=== PATIENT | male | born 1975 | race Caucasian/White ===

== ENCOUNTER 2024-08-24 17:24 | Emergency (ER) | payer MEDICAID, OTHER ==
[~2024-08-24] VITALS: Ht 167.6 cm; Wt 90.8 kg
[2024-08-24] MEDS: SODIUM CHLORIDE 0.9% 1,900 ML IV ONE ×2 (17:45→18:48)
--- NOTE | 2024-08-24 17:49 | ED.PDOC ---
Eye-HPI HPI Comments 49 y.o male presents to the ED for a chief complaint of right lower tooth pain associated with throat swelling and SOB that started this morning. Patient reports going to the dentist for tooth pain, was prescribed two medications in which he started the first dose today and states symptoms have not improved but worsened, with the sensation that his throat is closing. Patient has difficult time speaking due to oral swelling and reports pain upon swallowing. No drooling or bleeding noted. Chief Complaint: Shortness of Breath Time Seen by MD: 17:40 Primary Care Provider: ? Reviewed Notes: Nurses Notes, Medications, Allergies Allergies: Coded Allergies: NO KNOWN ALLERGIES (Unverified , 08/24/24) Information Source: Patient Mode of Arrival: Ambulatory Timing: Hours Duration: Since onset Quality: Pain Mouth Location: Right, Lower, Tooth/Teeth Mouth: Right, Tender, Swelling Associated signs and symptoms: Tooth Pain Past Medical History PAST MEDICAL HISTORY: Denies Surgical History: Denies all surgeries Family History Family History: Reviewed,noncontributory to illness Social History Smoker: Non-Smoker Alcohol: Denies ETOH Use Drugs: Denies Drug Use Lives In: Home Constitutional: denies: chills, diaphoresis, fatigue, fever, malaise, sweats, weakness, others EENTM: reports: throat swelling, others (right lower tooth pain. Throat swelling/nexk swelling ); denies: blurred vision, double vision, ear bleeding, ear discharge, ear drainage, ear pain, ear ringing, eye pain, eye redness, hearing loss, mouth pain, mouth swelling, nasal discharge, nose bleeding, nose congestion, nose pain, photophobia, tearing, throat pain, voice changes Respiratory: denies: cough, hemoptysis, orthopnea, SOB at rest, shortness of breath, SOB with excertion, stridor, wheezing, others Cardiovascular: denies: chest pain, dizzy spells, diaphoresis, Dyspnea on exertion, edema, irregular heart beat, left arm pain, lightheadedness, palpitations, PND, syncope, others Gastrointestinal: denies: abdomen distended, abdominal pain, blood streaked bowels, constipated, diarrhea, dysphagia, difficulty swallowing, hematemesis, melena, nausea, poor appetite, poor fluid intake, rectal bleeding, rectal pain, vomiting, others Genitourinary: denies: burning, dysuria, flank pain, frequency, hematuria, incontinence, penile discharge, penile sore, pain, testicle pain, testicle swelling, urgency, others Neurological: denies: dizziness, fainting, headache, left sided numbness, left sided weakness, numbness, paresthesia, pre-existing deficit, right sided numbness, right sided weakness, seizure, speech problems, tingling, tremors, weakness, others Musculoskeletal: denies: back pain, gout, joint pain, joint swelling, muscle pain, muscle stiffness, neck pain, others Integumetry: denies: bruises, change in color, change in hair/nails, dryness, laceration, lesions, lumps, rash, wounds, others Allergic/Immunocompromised: denies: Difficulty Healing, Frequent Infections, Hives, Itching, others Hematologic/Lymphatic: denies: anemia, blood clots, easy bleeding, easy bruising, swollen glands, others Endocrine: denies: excessive hunger, excessive sweating, excessive thirst, excessive urination, flushing, intolerance to cold, intolerance to heat, u nexplained weight gain, unexplained weight loss, others Psychiatric: denies: anxiety, bipolar disorder, depression, hopeless, panic disorder, schizophrenia, sleepless, suicidal, others All Other Systems: Reviewed and Negative Physical Exam General Appearance: No Apparent Distress, Obese HEENT: Other (Pupils symmetric. Extraocular movements intact. Elevation of the floor of the mouth with soft tissue swelling and tenderness of the right mandibular area extending to the right neck. Unable to visualize posterior pharynx.) Neck: Supple, Other (No posterior midline tenderness. Right lateral neck soft tissue tenderness and swelling.) Respiratory: Lungs Clear, No Accessory Muscle Use, No Respiratory Distress, Normal Breath Sounds Cardiovascular: No JVD, Regular Rate/Rhythm Breast Exam: Deferred Gastrointestinal: Non Tender, Soft Genitalia: Deferred Pelvic: Deferred Rectal: Deferred Extremities: Normal inspection, Normal range of motion, Non-tender, No pedal edema Neurologic: Alert (Oriented x4), Normal Affect, Normal Mood, Other (Ambulatory) Cerebellar Function: NOT DONE Reflexes: NOT DONE Skin: Dry, Normal Color, Warm Lymphatic: NOT DONE Was a procedure done? Was a procedure done?: No EENT DIFF Eye: N/A Sore Throat: Serafin's Angina, Peritonsillar Abscess, Peritonsillar Cellulitis, Other (Pulpitis, impacted wisdom tooth, ) Other Differential Diagnosis Dental abscess, lymphadenitis, retropharyngeal abscess, sepsis, among others X-Ray, Labs, Meds, VS Vital Signs Date Time Temp Pulse Resp B/P (MAP) Pulse Ox O2 Delivery O2 Flow Rate FiO2 08/24/24 21:57 100.0 08/24/24 21:43 100.0 08/24/24 21:00 109 37 141/90 (107) 95 08/24/24 20:43 100.2 08/24/24 19:30 100.2 112 28 135/93 (107) 96 100.2 08/24/24 19:30 Room Air* 0 08/24/24 19:20 113 22 135/93 08/24/24 18:38 116 30 127/93 08/24/24 18:11 Room Air* 0 08/24/24 18:11 99.2 119 26 126/93 (104) 97 99.2 08/24/24 17:45 18 98 Room Air* 0 08/24/24 17:35 98.8 122 18 122/89 (100) 98 98.8 Lab Test 08/24/24 21:03 08/24/24 18:01 Range/Units POC Glucose 171 H 70-106 mg/dl White Blood Count 23.6 H 4.4-10.8 10^3/uL Red Blood Count 5.79 4.5-5.90 10^6/uL Hemoglobin 16.9 13.5-17.5 g/dL Hematocrit 49.3 41.0-53.0 % Mean Corpuscular Volume 85.1 80.0-100.0 fL Mean Corpuscular Hemoglobin 29.1 28.0-32.0 pg Mean Corpuscular Hemoglobin Concent 34.2 32.0-36.0 g/dL Red Cell Distribution Width 13.7 11.8-14.3 % Platelet Count 235 140-450 10^3/uL Mean Platelet Volume 9.2 6.9-10.8 fL Neutrophils (%) (Auto) 92.7 H 37.0-80.0 % Lymphocytes (%) (Auto) 2.8 L 10.0-50.0 % Monocytes (%) (Auto) 4.4 0.0-12.0 % Eosinophils (%) (Auto) 0.0 0.0-7.0 % Basophils (%) (Auto) 0.1 0.0-2.0 % Neutrophils # (Auto) 21.8 H 1.6-8.6 10 ^3/uL Lymphocytes # (Auto) 0.7 0.4-5.4 10 ^3/uL Monocytes # (Auto) 1.0 0-1.3 10 ^3/uL Eosinophils # (Auto) 0 0-0.8 10 ^3/uL Basophils # (Auto) 0 0-0.2 10 ^3/uL Nucleated Red Blood Cells 0.0 % Sodium Level 144 136-145 mmol/L Potassium Level 3.7 3.5-5.1 mmol/L Chloride Level 109 H 98-107 mmol/L Carbon Dioxide Level 22 20-31 mmol/L Anion Gap 13 5-15 Blood Urea Nitrogen 14 9-23 mg/dL Creatinine 0.96 0.700-1.30 mg/dL Glomerular Filtration Rate Calc 98 >90 mL/min BUN/Creatinine Ratio 14.6 10.0-20.0 Serum Glucose 159 H 74-106 mg/dL Lactic Acid Level 2.0 0.4-2.0 mmol/L Calcium Level 10.2 8.7-10.4 mg/dL Current Medications Medications (Trade) Dose Ordered Sig/Gisella Route Start Time Stop Time Status Last Admin Sodium Chloride 1,900 ml @ 1,900 mls/hr ONCE ONCE IV 08/24/24 17:45 08/24/24 18:44 DC 08/24/24 17:45 Dexamethasone Sodium Phosphate (Decadron Injection) 10 mg ONCE ONCE IV 08/24/24 17:45 08/24/24 17:48 DC 08/24/24 18:37 Clindamycin Phosphate 50 ml @ 50 mls/hr ONCE ONCE IV 08/24/24 17:45 08/24/24 18:44 DC 08/24/24 18:48 Morphine Sulfate 4 mg ONCE ONCE IV 08/24/24 17:45 08/24/24 17:48 DC 08/24/24 18:38 Ondansetron HCl (Zofran) 4 mg ONCE ONCE IV 08/24/24 17:45 08/24/24 17:48 DC 08/24/24 18:37 Ceftriaxone Sodium 50 ml @ 100 mls/hr ONCE ONCE IV 08/24/24 19:30 08/24/24 19:59 DC 08/24/24 19:48 Acetaminophen (Tylenol Solution Oral) 975 mg ONCE ONCE PO 08/24/24 20:15 08/24/24 20:16 DC 08/24/24 20:43 Ibuprofen (MOTRIN 100MG/5 mL ORAL SUSP) 800 mg ONCE ONCE PO 08/24/24 21:45 08/24/24 21:46 DC 08/24/24 21:57 PROCEDURE(s): FAC2C - MAXILLOFACIAL WITHOUT REASON: R mandib pain/swelling ORDER NUMBER(s): [id number], ACCESSION NUMBER(s): [id number] Procedure: CT MAXILLOFACIAL WITHOUT Study Date and Requested Time: 08/24/2024 06:08 PM History: R mandib pain/swelling Comparison: None Dose: CTDI: 66.97 mGy DLP: 1985.04 mGycm Technique: Multiplanar images obtained through the face without intravenous contrast. Findings: Redemonstration of right last mandibular tooth dental caries with dehiscence of the medial wall associated edema and foci of air extending to the right submandibular region and Iuapm-cqcmapf-uocr-left neck, right oropharynx and right supraglottic soft tissues with retropharyngeal edema. Limited evaluation for abscess given noncontrast imaging. There is associated mild right-sided narrowing of the airway. Tonsilliths are noted within the left palatine tonsil. Subcentimeter cervical lymph nodes noted. The orbits and globes unremarkable. No evidence of acute traumatic fractures. Chronic deformity of the left lamina papyracea. Minimal mucoperiosteal thickening of the ethmoid air cells. Otherwise, the visualized paranasal sinuses and mastoids are clear. Impression: Redemonstration of right last mandibular tooth dental caries /infected dentigerous cyst with dehiscence of the medial wall and associated Foci of air and significant edema extending to the right submandibular region, right-grea dgo-ojck-moyh anterior neck, right oropharynx and supraglottic soft tissues and retropharyngeal region. Limited evaluation for abscess given noncontrast imaging. Mild right-sided narrowing of the airway. Critical Result: Dental caries /infected dentigerous cyst with associated extensive cellulitis Findings discussed with PORFIRIO GRIER at 08/24/2024 08:39 PM, and acknowledged receipt and understanding of the findings. .. EDURE(s): NKICT - NECK WITHOUT CONTRAST REASON: R neck swelling ORDER NUMBER(s): [id number], ACCESSION NUMBER(s): [id number] _ Procedure: CT NECK WITHOUT CONTRAST Study Date and Requested Time: 08/24/2024 06:08 PM History: R neck swelling Comparison: None Dose: CTDI: 22.99 mGy DLP: 1985.04 mGycm Technique: Multiplanar images obtained through the neck contrast Findings: There is partially unerupted right last mandibular molar tooth with significant periapical lucency with Foci of air extending inferior adjacent molar teeth with partial involvement of the posterior roots. The periapical lucency area appears to involve the adjacent mandibular canal with wall dehiscence medially and associated adjacent medial Foci of air extending to the inferior , medial and lateral to the mandibular ramus. There is associated Significant right mandibular and right neck soft tissue edema with edema of the right oropharynx and right supraglottic region causing mild narrowing of the airway. There is extension of the soft tissue edema to the left of the neck region There is associated retropharyngeal edema. No large drainable fluid collection is noted. Subcentimeter cervical lymph nodes noted. The edema extends inferior to the right parotid gland and surrounds the right submandibular gland. Otherwise, the parotid and submandibular glands unremarkable. The visualized cervical spine is unremarkable. Thyroid gland is unremarkable. The lung apices are clear. Impression: There is partially unerupted right last mandibular tooth with significant periapical lucency , Foci of air within the periapical lucency and dehiscence of the adjacent medial wall which most likely represent source of infection causing foci of air adjacent to The right mandibular ramus and right submandibular region with significant soft tissue edema of the right mandibular / submandibular region , Zabgp-izdtjku-cxxn-left Anterior neck , edema of the right oropharynx and supraglottic region and retropharyngeal edema. No large Drainable soft tissue fluid collection is noted within the limitations of noncontrast study. Critical Result: Dental caries with associated extensive cellulitis Findings discussed with PORFIRIO GRIER at 08/24/2024 08:34 PM, and acknowledged receipt and understanding of the findings. .. X-Ray, Labs, Meds, VS Comment 49-year-old male with no significant past medical history complaining of right posterior tooth, throat and neck pain and swelling Vitals remarkable for heart rate 122 Exam remarkable for elevation of the floor of the mouth with right mandibular and right neck soft tissue swelling, tenderness Rhythm strip independently interpreted by me: Sinus tach, rate 122, no ectopy. CT maxillofacial Impression: Redemonstration of right last mandibular tooth dental caries /infected dentigerous cyst with dehiscence of the medial wall and associated Foci of air and significant edema extending to the right submandibular region, mzseu-pulvjia-dljk-left anterior neck, right oropharynx and supraglottic soft tissues and retropharyngeal region. Limited evaluation for abscess given noncontrast imaging. Mild right-sided narrowing of the airway. Critical Result: Dental caries /infected dentigerous cyst with associated extensive cellulitis CT neck Impression: There is partially unerupted right last mandibular tooth with significant periapical lucency , Foci of air within the periapical lucency and dehiscence of the adjacent medial wall which most likely represent source of infection causing foci of air adjacent to The right mandibular ramus and right submandibular arash on with significant soft tissue edema of the right mandibular / submandibular region , Hipgo-xxnagen-ytqn-left Anterior neck , edema of the right oropharynx and supraglottic region and retropharyngeal edema. No large Drainable soft tissue fluid collection is noted within the limitations of noncontrast study. Critical Result: Dental caries with associated extensive cellulitis CBC remarkable for WBC 23.6 and left shift, basic metabolic panel unremarkable, lactic acid level 2 Patient treated with the following in the ED: 30 cc/kilogram IV normal saline bolus, Rocephin 1 g IV, clindamycin 900 mg IV, morphine 4 mg IV, Zofran 4 mg IV, Decadron 10 mg IV, Tylenol 975 mg p.o., motrin 800mg po On re-evaluation, patient states pain has somewhat improved. Vitals were stable. Oxygen saturation is 96% on room air, and patient is not in respiratory distress. Plan is to transfer the patient for higher level of care, ENT and/or OMFS. Discussed with Dr. Philip at [facility], who agreed to accept the patient. Time of 1ST Reevaluation: 17:49 Reevaluation 1ST: Unchanged Patient Education/Counseling: Diagnosis, Treatment, Prognosis Family Education/Counseling: No Family Present Sepsis Sepsis Reasesment Focused Exam Sepsis focused exam: focus exam completed, time: (1900) Orders: Laboratory Tests 08/24/24 18:01: Lactic Acid Level 2.0 Sepsis Date: Aug 24, 2024 Time recognized/suspected: 18:30 Recent Procedure: No On Antibiotic Therapy: Yes Respiratory Rate >20: Yes Heart Rate >90: Yes Temp<36 C (96.8 F) or >38.3 C: No SBP <90 or MAP <65 mmHG: No New Acute Mental Status Change: No Is the patient on CPAP, BIPAP,: No IV fluid given: Yes Departure 1 Departure Time of Disposition: 20:45 Impression: Primary Impression: Ludwigs angina Additional Impression: Sepsis Qualified Codes: A41.9 - Sepsis, unspecified organism Disposition: 02 SHORT TERM HOSPITAL Admit to: Tele Condition: Guarded Critical Care Note Critical Care Time?: Yes (45 min-critical care time only) Critical care comment: Critical care time including multiple bedside re-evaluations, review of lab and imaging studies, and discussion of the case with the accepting provider. Patie nt is high risk for respiratory and/or hemodynamic decompensation. Stability Stability form required: No I personally scribed for PORFIRIO GRIER MD ([facility] on 08/24/24 at 17:49. Electronically submitted by Ana Luisa Harden ([facility]). PORFIRIO GRIER MD Aug 24, 2024 17:49
[2024-08-24 18:20] LABS: Basophils # (auto) 0 10 ^3/uL (0-0.2); Basophils % (auto) 0.1 % (0.0-2.0); Eosinophils # (auto) 0 10 ^3/uL (0-0.8); Hematocrit 49.3 % (41.0-53.0); Hemoglobin 16.9 g/dL (13.5-17.5); Lymphocytes # (auto) 0.7 10 ^3/uL (0.4-5.4); Lymphocytes % (auto) 2.8 % (10.0-50.0); Mean Corpuscular Hemoglobin 29.1 pg (28.0-32.0); Mean Corpuscular Hgb Conc. 34.2 g/dL (32.0-36.0); Mean Corpuscular Volume 85.1 fL (80.0-100.0); Monocytes % (auto) 4.4 % (0.0-12.0); Neutrophils # (auto) 21.8 10 ^3/uL (1.6-8.6); Neutrophils % (auto) 92.7 % (37.0-80.0); Platelet Count (auto) 235 10^3/uL (140-450); Red Blood Cells 5.79 10^6/uL (4.5-5.90); Red Cell Distribution Width 13.7 % (11.8-14.3); White Blood Cell 23.6 10^3/uL (4.4-10.8)
[2024-08-24 18:27] LABS: Potassium 3.7 mmol/L (3.5-5.1); Sodium 144 mmol/L (136-145)
[2024-08-24 18:28] LABS: Anion Gap 13 (5-15); Carbon Dioxide 22 mmol/L (20-31)
[2024-08-24 18:29] LABS: Calcium 10.2 mg/dL (8.7-10.4)
[2024-08-24 18:34] LABS: BUN/Creatinine Ratio 14.6 (10.0-20.0); Blood Urea Nitrogen 14 mg/dL (9-23)
[2024-08-24 18:37] LABS: Chloride 109 mmol/L (98-107); Glucose 159 mg/dL (74-106)
[2024-08-24] MEDS: DexAMETHasone SOD PHOS 10MG/1ML VIAL INJ IV ONE (18:37)
[2024-08-24] MEDS: ONDANSETRON HCL 4 MG/2 ML VIAL IV ONE (18:37)
[2024-08-24] MEDS: MORPHINE SULFATE 4 MG/ML SYR/VIAL IV ONE (18:38)
[2024-08-24] MEDS: CLINDAMYCIN 900MG IV 50 ML IV ONE (18:48)
[2024-08-24] MEDS: cefTRIAXone 1GM/50ML D5W 50 ML IV ONE (19:48)
[2024-08-24] MEDS ORDERED: ACETAMINOPHEN 650 mg PER 20.3 mL UD PO ONE (20:00)
--- NOTE | 2024-08-24 20:37 | DVH ---
_ Procedure: CT NECK WITHOUT CONTRAST Study Date and Requested Time: 2024 06:08 PM History: R neck swelling Comparison: None Dose: CTDI: 22.99 mGy DLP: 1985.04 mGycm Technique: Multiplanar images obtained through the neck contrast Findings: There is partially unerupted right last mandibular molar tooth with significant periapical lucency wi th Foci of air extending inferior adjacent molar teeth with partial involvement of the posterior roula ts. The periapical lucency area appears to involve the adjacent mandibular canal with wall dehiscence medially and associated adjacent medial Foci of air extending to the inferior , medial and lateral t o the mandibular ramus. There is associated Significant right mandibular and right neck soft tissue edema with edema of the r ight oropharynx and right supraglottic region causing mild narrowing of the airway. There is extensio n of the soft tissue edema to the left of the neck region There is associated retropharyngeal edema. No large drainable fluid collection is noted. Subcentimeter cervical lymph nodes noted. The edema extends inferior to the right parotid gland and surrounds the right submandibular gland. O therwise, the parotid and submandibular glands unremarkable. The visualized cervical spine is unremarkable. Thyroid gland is unremarkable. The lung apices are odalis ar. Impression: There is partially unerupted right last mandibular tooth with significant periapical lucency , Foci o f air within the periapical lucency and dehiscence of the adjacent medial wall which most likely repr esent source of infection causing foci of air adjacent to The right mandibular ramus and right subman dibular region with significant soft tissue edema of the right mandibular / submandibular region , Ri yzc-djtiyks-eduh-left Anterior neck , edema of the right oropharynx and supraglottic region and retro pharyngeal edema. No large Drainable soft tissue fluid collection is noted within the limitations of noncontrast study. Critical Result: Dental caries with associated extensive cellulitis Findings discussed with PORFIRIO GRIER at 08/24/2024 08:34 PM, and acknowledged receipt and understanding of the findings. ..
[2024-08-24] MEDS: ACETAMINOPHEN 650 mg PER 20.3 mL UD PO ONE (20:43)
--- NOTE | 2024-08-24 20:44 | DVH ---
Procedure: CT MAXILLOFACIAL WITHOUT Study Date and Requested Time: 2024 06:08 PM History: R mandib pain/swelling Comparison: None Dose: CTDI: 66.97 mGy DLP: 1985.04 mGycm Technique: Multiplanar images obtained through the face without intravenous contrast. Findings: Redemonstration of right last mandibular tooth dental caries with dehiscence of the medial wall assoc iated edema and foci of air extending to the right submandibular region and Uyzcv-yjeptgu-bdcx-left n genia, right oropharynx and right supraglottic soft tissues with retropharyngeal edema. Limited evalua tion for abscess given noncontrast imaging. There is associated mild right-sided narrowing of the air way. Tonsilliths are noted within the left palatine tonsil. Subcentimeter cervical lymph nodes noted. The orbits and globes unremarkable. No evidence of acute traumatic fractures. Chronic deformity of the left lamina papyracea. Minimal muc operiosteal thickening of the ethmoid air cells. Otherwise, the visualized paranasal sinuses and mas toids are clear. Impression: Redemonstration of right last mandibular tooth dental caries /infected dentigerous cyst with dehiscen ce of the medial wall and associated Foci of air and significant edema extending to the right subman dibular region, byqli-yyklbtq-rxng-left anterior neck, right oropharynx and supraglottic soft tissues and retropharyngeal region. Limited evaluation for abscess given noncontrast imaging. Mild right-sided narrowing of the airway. Critical Result: Dental caries /infected dentigerous cyst with associated extensive cellulitis Findings discussed with PORFIRIO GRIER at 08/24/2024 08:39 PM, and acknowledged receipt and understanding of the findings. ..
[2024-08-24] MEDS: IBUPROFEN 100MG/5ML ORAL SUSP 100 MG/5 ML UD PO ONE (21:57)
[2024-08-24 22:10] VITALS: BP 108/78; PULSE 105; RESP 27; TEMP 100; O2SAT 96
== END 2024-08-24 22:32 | disposition short-term general hospital (02) ==
LOC: ER 17:24
DX: A41.9 Sepsis, unspecified organism (principal); K12.2 Cellulitis and abscess of mouth; R06.02 Shortness of breath
CPT/HCPCS: 36415; 70486; 70490; 80048; 82947; 83605; 85025; 87040; 96361; 96365; 96367; 96375; 99291; J0696; J1100; J2270; J2405; J3490; J7030; J7040; 82962

== ENCOUNTER 2025-02-09 10:18 | Inpatient (IN) | payer SELFPAY ==
[~2025-02-09] VITALS: Ht 170.2 cm; Wt 96.4 kg
--- NOTE | 2025-02-09 10:48 | ED.PDOC ---
GI ASSESSMENT HPI Comments 49 y/o M, presents to the ED for CC of abdominal pain. Patient states, he has been experiencing worsening abdominal pain onset, [id number] ago. Patient relays, further symptoms of "dark" colored urine. Patient endorses, drinking ETOH denies tobacco or illicit drug usage. No other symptoms or modifying factors are present at this time. Chief Complaint: Abdominal Pain Time Seen by MD: 10:45 Primary Care Provider: ? Reviewed Notes: Nurses Notes, Medications, Allergies Allergies: Coded Allergies: NO KNOWN ALLERGIES (Unverified , 08/24/24) Information Source: Patient Mode of Arrival: Ambulatory Timing: Weeks Duration: Since onset Prehospital treatment: None Vomitus: Watery Stool: Normal Severity: Moderate Recent: None Recent Hx of: None Pain Location: Diffuse Modifying Factors: Nothing Associated sign and symptoms: Nausea, Abdominal Pain Past Medical History PAST MEDICAL HISTORY: Denies Surgical History: Denies all surgeries Family History Family History: Reviewed,noncontributory to illness Social History Smoker: Non-Smoker Alcohol: Denies ETOH Use Drugs: Denies Drug Use Lives In: Home Constitutional: denies: chills, diaphoresis, fatigue, fever, malaise, sweats, weakness, others EENTM: denies: blurred vision, double vision, ear bleeding, ear discharge, ear drainage, ear pain, ear ringing, eye pain, eye redness, hearing loss, mouth pain, mouth swelling, nasal discharge, nose bleeding, nose congestion, nose pain, photophobia, tearing, throat pain, throat swelling, voice changes, others Respiratory: denies: cough, hemoptysis, orthopnea, SOB at rest, shortness of breath, SOB with excertion, stridor, wheezing, others Cardiovascular: denies: chest pain, dizzy spells, diaphoresis, Dyspnea on exer tion, edema, irregular heart beat, left arm pain, lightheadedness, palpitations, PND, syncope, others Gastrointestinal: reports: abdominal pain, nausea; denies: abdomen distended, blood streaked bowels, constipated, diarrhea, dysphagia, difficulty swallowing, hematemesis, melena, poor appetite, poor fluid intake, rectal bleeding, rectal pain, vomiting, others Genitourinary: denies: burning, dysuria, flank pain, frequency, hematuria, incontinence, penile discharge, penile sore, pain, testicle pain, testicle swelling, urgency, others Neurological: denies: dizziness, fainting, headache, left sided numbness, left sided weakness, numbness, paresthesia, pre-existing deficit, right sided numbness, right sided weakness, seizure, speech problems, tingling, tremors, weakness, others Musculoskeletal: denies: back pain, gout, joint pain, joint swelling, muscle pain, muscle stiffness, neck pain, others Integumetry: denies: bruises, change in color, change in hair/nails, dryness, laceration, lesions, lumps, rash, wounds, others Allergic/Immunocompromised: denies: Difficulty Healing, Frequent Infections, Hives, Itching, others Hematologic/Lymphatic: denies: anemia, blood clots, easy bleeding, easy bruising, swollen glands, others Endocrine: denies: excessive hunger, excessive sweating, excessive thirst, excessive urination, flushing, intolerance to cold, intolerance to heat, unexplained weight gain, unexplained weight loss, others Psychiatric: denies: anxiety, bipolar disorder, depression, hopeless, panic disorder, schizophrenia, sleepless, suicidal, others All Other Systems: Reviewed and Negative Physical Exam General Appearance: Moderate Distress HEENT: Scleral Icterus (L), Scleral Icterus (R) Neck: Full Range of Motion, Non-Tender, Normal, Normal Inspection Respiratory: Chest Non-Tender, Lungs Clear, No Accessory Muscle Use, No Respiratory Distress, Normal Breath Sounds Cardiovascular: No Edema, No JVD, No Murmur, No Gallop, Normal Peripheral Pulses, Regular Rate/Rhythm Breast Exam: Deferred Gastrointestinal: Distended Genitalia: Deferred Pelvic: Deferred Rectal: Deferred Extremities: No calf tenderness, Normal capillary refill, Normal inspection, Normal range of motion, Non-tender, No pedal edema Musculoskeletal : Apperance: Normal Neurologic: Alert, onsite case manager II-XII nml as Tested, No Motor Deficits, Normal Affect, Normal Mood, No Sensory Deficits Cerebellar Function: Normal Reflexes: Normal Skin: Dry, Normal Color, Warm Peripheral Pulses: 3+ Radial (R), 3+ Radial (L) Lymphatic: No Adenopathy Was a procedure done? Was a procedure done?: No GI differential Dx Differential Diagnosis: Constipation, Diverticular disease, Esophagitis, Gastritis/PUD, Gastroenteritis, Electrolyte Imbalance, Bacterial, Viral X-Ray, Labs, Meds, VS Vital Signs Date Time Temp Pulse Resp B/P (MAP) Pulse Ox O2 Delivery O2 Flow Rate FiO2 02/09/25 11:48 92 18 148/96 02/09/25 11:43 98.6 92 18 148/96 (113) 98 98.6 02/09/25 10:19 98.2 75 16 127/88 96 98.2 Lab Test 02/09/25 11:49 Range/Units White Blood Count 16.5 H 4.4-10.8 10^3/uL Red Blood Count 6.19 H 4.5-5.90 10^6/uL Hemoglobin 17.7 H 13.5-17.5 g/dL Hematocrit 52.9 41.0-53.0 % Mean Corpuscular Volume 85.5 80.0-100.0 fL Mean Corpuscular Hemoglobin 28.5 28.0-32.0 pg Mean Corpuscular Hemoglobin Concent 33.4 32.0-36.0 g/dL Red Cell Distribution Width 13.5 11.8-14.3 % Platelet Count 271 140-450 10^3/uL Mean Platelet Volume 9.4 6.9-10.8 fL Neutrophils (%) (Auto) 87.6 H 37.0-80.0 % Lymphocytes (%) (Auto) 6.5 L 10.0-50.0 % Monocytes (%) (Auto) 5.5 0.0-12.0 % Eosinophils (%) (Auto) 0.2 0.0-7.0 % Basophils (%) (Auto) 0.2 0.0-2.0 % Neutrophils # (Auto) 14.4 H 1.6-8.6 10 ^3/uL Lymphocytes # (Auto) 1.1 0.4-5.4 10 ^3/uL Monocytes # (Auto) 0.9 0-1.3 10 ^3/uL Eosinophils # (Auto) 0 0-0.8 10 ^3/uL Basophils # (Auto) 0 0-0.2 10 ^3/uL Nucleated Red Blood Cells 0.1 % Sodium Level Pending Potassium Level Pending Chloride Level Pending Carbon Dioxide Level Pending Anion Gap Pending Blood Urea Nitrogen Pending Creatinine Pending Glomerular Filtration Rate Calc Pending BUN/Creatinine Ratio Pending Serum Glucose Pending Calcium Level Pending Total Bilirubin Pending Aspartate Amino Transferase (AST) Pending Alanine Aminotransferase (ALT) Pending Alkaline Phosphatase Pending Total Protein Pending Albumin Pending Current Medications Medications (Trade) Dose Ordered Sig/Gisella Route Start Time Stop Time Status Last Admin Morphine Sulfate 4 mg ONCE ONCE IV 02/09/25 11:15 02/09/25 11:16 DC 02/09/25 11:48 Ondansetron HCl (Zofran) 4 mg ONCE ONCE IV 02/09/25 11:15 02/09/25 11:16 DC 02/09/25 11:48 [place] [id number] Ph: [phone] DIAGNOSTIC IMAGING Diagnostic Imaging Report : [id number] Signed PATIENT: EMMY TALAMANTESACCT: [id number] UNIT: [id number] : 1975 LOC: ER ROOM / BED: / AGE / SEX: 49 / M ADM STATUS: REG ER SERVICE 1101 ORDERING PHYSICIAN: MARC THOMPSON MD PROCEDURE(s): ABPL - CT AB PEL WO CON-NO ORAL OR IV REASON: distended ORDER NUMBER(s): [id number], ACCESSION NUMBER(s): [id number] CLINICAL INFORMATION: Abdominal distention. TECHNIQUE: Axial CT images of the abdomen and pelvis were obtained without IV contrast. Coronal and sagittal reformatted images were obtained, reviewed, and stored. Evaluation of the parenchymal organs is limited without IV contrast. Evaluation of the bowel and mesentery is limited without oral contrast. All CT scans at this medical facility are performed using dose modulation techniques as appropriate to a performed exam including the following: Automated exposure control was utilized; adjustment of the MA and/or KV according to patient size; and use of iterative reconstruction technique. CTDIvol = 15.06 mGy DLP = 831.72 mGy-cm COMPARISON: None FINDINGS: Motion artifact limits evaluation. Lung bases: Respiratory motion artifact limits evaluation. Liver: Grossly unremarkable in its noncontrast enhanced appearance. No abnormal density or focal lesion identified. Biliary: Multiple small, low-density gallstones within the gallbladder. Spleen: Unremarkable. Pancreas: Moderate peripancreatic inflammatory stranding and fluid consistent with acute pancreatitis in the appropriate clinical setting. No organized peripancreatic fluid collection identified at this time. Adrenal glands: Unremarkable. No mass. Kidneys: No hydronephrosis. No renal or ureteral calculi. Aorta/Vascular: No aneurysm or significant calcification. Lymph nodes: No mass or lymphadenopathy. Bowel/mesentery: Nonspecific nondilated fluid-filled small bowel loops. No small bowel obstruction. Appendix is not visualized. Scattered small colonic diverticula without adjacent inflammatory changes to suggest diverticulitis. Pelvic organs: Grossly unremarkable. Bladder: Unremarkable. No mass. Abdominal wall: No mass or hernia. Bones: No acute fracture or suspicious intraosseous lesion. IMPRESSION: 1. Findings consistent with acute pancreatitis as described above. No organized peripancreatic fluid collection identified at this time. 2. Cholelithiasis. 3. Nonspecific nondilated fluid-filled small bowel loops. Findings may be seen with ileus or enteritis in the appropriate clinical setting. No small bowel obstruction. 4. Scattered small colonic diverticula without adjacent inflammatory changes to suggest diverticulitis. 5. Motion limited study. 6. Additional findings as described above. ATED BY: KRUNAL STUART DO DICTATED DATE/TIME: 02/09/251211 SIGNED BY: KRUNAL STUART DO SIGNED DATE/TIME: 02/09/251211 CC: Patient alert. Complaining of abdominal pain. Vitals stable. Answering questions. On examination abdomen is distended. History of alcohol use. CT scan of the abdomen reviewed does show pancreatitis. Has gallstones. Possible gallstone pancreatitis. Establish intravenous access. Was given fluids. Was given Rocephin. Was given Flagyl. Explained to the patient. Continue monitoring. Time of 1ST Reevaluation: 11:15 Reevaluation 1ST: Unchanged Patient Education/Counseling: Diagnosis, Treatment Family Education/Counseling: No Family Present SEPSIS Sepsis Screen Date sepsis recognized/suspect: Feb 09, 2025 Time Sepsis recognized/suspect: 1019 Recent Procedure: No On Antibiotic Therapy: No Respiratory Rate >20: No Heart Rate >90: Yes Temp<36 C (96.8 F) or >38.3 C: No SBP <90 or MAP <65 mmHG: No New Acute Mental Status Change: No Is the patient on CPAP, BIPAP,: No Physician Orders Comprehensive Metabolic Panel (02/09/25 11:01) Urinalysis (02/09/25 11:01) Ct Ab Pel Wo Con-No Oral Or Iv (02/09/25 11:01) Vital Signs Date Time Temp Pulse Resp B/P (MAP) Pulse Ox O2 Delivery O2 Flow Rate FiO2 02/09/25 11:48 92 18 148/96 02/09/25 11:43 98.6 92 18 148/96 (113) 98 98.6 02/09/25 10:19 98.2 75 16 127/88 96 98.2 Laboratory Tests Test 02/09/25 11:49 White Blood Count 16.5 10^3/uL (4.4-10.8) H Medications Medications Dose Ordered Sig/Gisella Route Start Time Stop Time Status Last Admin Dose Admin Morphine Sulfate 4 mg ONCE ONCE IV 02/09/25 11:15 02/09/25 11:16 DC 02/09/25 11:48 Ondansetron HCl 4 mg ONCE ONCE IV 02/09/25 11:15 02/09/25 11:16 DC 02/09/25 11:48 Departure 1 Departure Time of Disposition: 12:30 Impression: Primary Impression: Acute pancreatitis Qualified Codes: K85.20 - Alcohol induced acute pancreatitis without necrosis or infection Additional Impressions: Gallstones Acute abdominal pain Disposition: ADMITTED INPATIENT Admit to: Med Surg Condition: Guarded Critical Care Note Critical Care Time?: Yes (90 min-critical care time only) Stability Stability form required: No Heart Score Heart Score: Heart Score Response (Comments) Value History N/A 0 EKG N/A 0 Age N/A 0 Risk Factors N/A 0 Troponin N/A 0 Total 0 I personally scribed for MARC THOMPSON MD ([email or web address]) on 02/09/25 at 10:48. Electronically submitted by Greta Lopez ([email or web address]). I personally scribed for MARC THOMPSON MD ([email or web address]) on 02/09/25 at 11:04. Electronically submitted by Greta Lopez ([email or web address]). I personally scribed for MARC THOMPSON MD ([email or web address]) on 02/09/25 at 12:16. Electronically submitted by Greta Lopez ([email or web address]). MARC THOMPSON MD Feb 09, 2025 10:48
[2025-02-09] MEDS: ONDANSETRON HCL 4 MG/2 ML VIAL IV ONE (11:48)
[2025-02-09] MEDS: MORPHINE SULFATE 4 MG/ML SYR/VIAL IV ONE (11:48)
--- NOTE | 2025-02-09 12:14 | DVH ---
CLINICAL INFORMATION: Abdominal distention. TECHNIQUE: Axial CT images of the abdomen and pelvis were obtained without IV contrast. Coronal and sagittal reformatted images were obtained, reviewed, and stored. Evaluation of the parenchymal organs is limited without IV contrast. Evaluation of the bowel and mesentery is limited without oral contrast. All CT scans at this medical facility are performed using dose modulation techniques as appropriate to a performed exam including the following: Automated exposure control was utilized; adjustment of the MA and/or KV according to patient size; and use of iterative reconstruction technique. CTDIvol = 15.06 mGy DLP = 831.72 mGy-cm COMPARISON: None FINDINGS: Motion artifact limits evaluation. Lung bases: Respiratory motion artifact limits evaluation. Liver: Grossly unremarkable in its noncontrast enhanced appearance. No abnormal density or focal lesion identified. Biliary: Multiple small, low-density gallstones within the gallbladder. Spleen: Unremarkable. Pancreas: Moderate peripancreatic inflammatory stranding and fluid consistent with acute pancreatitis in the appropriate clinical setting. No organized peripancreatic fluid collection identified at this time. Adrenal glands: Unremarkable. No mass. Kidneys: No hydronephrosis. No renal or ureteral calculi. Aorta/Vascular: No aneurysm or significant calcification. Lymph nodes: No mass or lymphadenopathy. Bowel/mesentery: Nonspecific nondilated fluid-filled small bowel loops. No small bowel obstruction. Appendix is not visualized. Scattered small colonic diverticula without adjacent inflammatory changes to suggest diverticulitis. Pelvic organs: Grossly unremarkable. Bladder: Unremarkable. No mass. Abdominal wall: No mass or hernia. Bones: No acute fracture or suspicious intraosseous lesion. IMPRESSION: 1. Findings consistent with acute pancreatitis as described above. No organized peripancreatic fluid collection identified at this time. 2. Cholelithiasis. 3. Nonspecific nondilated fluid-filled small bowel loops. Findings may be seen with ileus or enteritis in the appropriate clinical setting. No small bowel obstruction. 4. Scattered small colonic diverticula without adjacent inflammatory changes to suggest diverticulitis. 5. Motion limited study. 6. Additional findings as described above.
[2025-02-09 12:16] LABS: Hemoglobin 17.7 g/dL (13.5-17.5)
[2025-02-09 12:18] LABS: Hematocrit 52.9 % (41.0-53.0); Mean Corpuscular Hemoglobin 28.5 pg (28.0-32.0); Mean Corpuscular Volume 85.5 fL (80.0-100.0); Nucleated Red Blood Cells % 0.1 %
[2025-02-09 12:28] LABS: Albumin 4.8 g/dL (3.2-4.8); Anion Gap 9 (5-15); BUN/Creatinine Ratio 14.2 (10.0-20.0); Blood Urea Nitrogen 15 mg/dL (9-23); Calcium 10.1 mg/dL (8.7-10.4); Carbon Dioxide 27 mmol/L (20-31); Chloride 106 mmol/L (98-107); Potassium 3.9 mmol/L (3.5-5.1); Sodium 142 mmol/L (136-145); Total Protein 7.7 g/dL (5.7-8.2)
[2025-02-09 12:29] LABS: Alanine Aminotransferase 765 U/L (7-40); Alkaline Phosphatase 163 U/L (46-116); Glucose 164 mg/dL (74-106)
[2025-02-09 12:32] LABS: Bilirubin, Total 3.8 mg/dL (0.2-1.0)
[2025-02-09 12:45] LABS: Urine Protein, UAD 1+ (Negative)
[2025-02-09] MEDS: SODIUM CHLORIDE 0.9% 1,000 ML IV ONE ×2 (13:05→17:46)
[2025-02-09] MEDS ORDERED: DOCUSATE SOD 100 MG CAP PO PRN (16:00)
[2025-02-09] MEDS ORDERED: ACETAMINOPHEN 325 MG TAB PO PRN (16:00)
[2025-02-09] MEDS: SODIUM CHLORIDE 0.9% 1,000 ML IV SCH (16:00)
--- NOTE | 2025-02-09 16:30 | DVHHP2 ---
History of Present Illness Reason for Visit: Abdominal pain History of Present Illness Salvatore Kruse is a 49-year-old male with no significant past medical history, who came in with complaints of abdominal pain. Patient states his abdominal pain began about 2 weeks ago. The pain has continued and was worsening prompting him to come to the hospital. He states he was drinking alcohol this past weekend and it seemed to worsen after that. He states he only drank a couple beers and that he doesn't drink that much. I explained to patient that the labs refect acute pancreatitis, most likely from ETOH. He continued to deny heavy alcohol intake. States he doesn't even drink weekly. Past Surgical History: None Smoke: No Drugs: None Lives: with Family Review of Systems Constitutional: No: Fever, Chills, Sweats, Weakness, Malaise, Other Eyes: No: Pain, Vision change, Conjunctivae inflammation, Eyelid inflammation, Other, Redness ENT: No: Ear pain, Ear discharge, Nose pain, Nose discharge, Nose congestion, Mouth pain, Mouth swelling, Throat pain, Throat swelling, Other Respiratory: No: Cough, Dry, Shortness of breath, SOB with excertion, Wheezing, Hemoptysis, Pleuritic Pain, Sputum, Wheezing, Other Cardiovascular: No: Chest Pain, Palpitations, Orthopnea, Paroxysmal Noc. Dyspnea, Edema, Lt Headedness, Other Gastrointestinal: Nausea, Abdominal Pain; No: Vomiting, Diarrhea, Constipation, Melena, Hematochezia, Other Genitourinary: No Dysuria, No Frequency, No Incontinence, No Hematuria, No Retention, No Other Musculoskeletal: No: other, neck pain, shoulder pain, arm pain, back pain, hand pain, leg pain, foot pain Skin: No: Rash, Lesions, Jaundice, Bruising, Other Neurological: No: Weakness, Numbness, Incoordination, Change in speech, Confusion, Seizures, Other Allergies: Coded Allergies: NO KNOWN ALLERGIES (Unverified , 08/24/24) Medications Current Medications Medications Dose Ordered Sig/Gisella Route Start Time Stop Time Status Last Admin Dose Admin Sodium Chloride 1,000 ml @ 120 mls/hr Q8H20M IV 02/09/25 16:00 UNV Acetaminophen/ Hydrocodone Bitart 1 tab Q4HP PRN PO 02/09/25 16:00 UNV Ondansetron HCl 4 mg Q4HP PRN IV 02/09/25 16:00 UNV Docusate Sodium 100 mg BIDPRN PRN PO 02/09/25 16:00 UNV Acetaminophen 650 mg Q6HP PRN PO 02/09/25 16:00 UNV Morphine Sulfate 2 mg Q4HPRN PRN IV 02/09/25 16:00 UNV Exam Vital Signs Vital Signs Date Time Temp Pulse Resp B/P (MAP) Pulse Ox O2 Delivery O2 Flow Rate FiO2 02/09/25 14:09 98.6 88 17 144/94 (111) 98 98.6 General Appearance: Alert, Oriented X3, Cooperative, moderate distress HEENT: Atraumatic, PERRLA Respiratory: Clear to auscultation, Normal air movement Cardiovascular: Regular rate, Normal S1, Normal S2, No murmurs Abdominal: Normal bowel sounds, Soft, Other (Abdominal tenderness) Extremities: No clubbing, No cyanosis, No edema, Normal pulses, No tenderness/swelling Skin: No rashes, No breakdown, No significant lesion Neuro: Normal gait, Normal speech, Strength at 5/5 X4 ext, Normal tone Psych/Mental Status: Mental status NL, Mood NL Labs/Xrays Labs Test 02/09/25 11:49 02/09/25 11:20 Range/Units White Blood Count 16.5 H 4.4-10.8 10^3/uL Red Blood Count 6.19 H 4.5-5.90 10^6/uL Hemoglobin 17.7 H 13.5-17.5 g/dL Hematocrit 52.9 41.0-53.0 % Mean Corpuscular Volume 85.5 80.0-100.0 fL Mean Corpuscular Hemoglobin 28.5 28.0-32.0 pg Mean Corpuscular Hemoglobin Concent 33.4 32.0-36.0 g/dL Red Cell Distribution Width 13.5 11.8-14.3 % Platelet Count 271 140-450 10^3/uL Mean Platelet Volume 9.4 6.9-10.8 fL Neutrophils (%) (Auto) 87.6 H 37.0-80.0 % Lymphocytes (%) (Auto) 6.5 L 10.0-50.0 % Monocytes (%) (Auto) 5.5 0.0-12.0 % Eosinophils (%) (Auto) 0.2 0.0-7.0 % Basophils (%) (Auto) 0.2 0.0-2.0 % Neutrophils # (Auto) 14.4 H 1.6-8.6 10 ^3/uL Lymphocytes # (Auto) 1.1 0.4-5.4 10 ^3/uL Monocytes # (Auto) 0.9 0-1.3 10 ^3/uL Eosinophils # (Auto) 0 0-0.8 10 ^3/uL Basophils # (Auto) 0 0-0.2 10 ^3/uL Nucleated Red Blood Cells 0.1 % Sodium Level 142 136-145 mmol/L Potassium Level 3.9 3.5-5.1 mmol/L Chloride Level 106 98-107 mmol/L Carbon Dioxide Level 27 20-31 mmol/L Anion Gap 9 5-15 Blood Urea Nitrogen 15 9-23 mg/dL Creatinine 1.06 0.700-1.30 mg/dL Glomerular Filtration Rate Calc 87 >90 mL/min BUN/Creatinine Ratio 14.2 10.0-20.0 Serum Glucose 164 H 74-106 mg/dL Calcium Level 10.1 8.7-10.4 mg/dL Total Bilirubin 3.8 H 0.2-1.0 mg/dL Aspartate Amino Transferase (AST) 327 H 13-40 U/L Alanine Aminotransferase (ALT) 765 H 7-40 U/L Alkaline Phosphatase 163 H 46-116 U/L Total Protein 7.7 5.7-8.2 g/dL Albumin 4.8 3.2-4.8 g/dL Amylase Level 3220 H 30-118 U/L Lipase > 3500 H 12-53 U/L Urine Color Dark-yellow Yellow Urine Clarity Turbid H Clear Urine pH 5.5 5.0-9.0 Urine Specific [place] 1.017 1.001-1.035 Urine Protein 1+ H Negative Urine Ketones Negative Negative Urine Blood Negative Negative /uL Urine Nitrite Negative Negative Urine Bilirubin 2+ Negative Urine Urobilinogen Normal Negative mg/dL Urine Leukocyte Esterase Negative Negative /uL Urine RBC <1 0 - 3 /hpf Urine Microscopic WBC 2 0-3 /HPF Urine Squamous Epithelial Cells Few <5 /hpf Urine Bacteria Few H None Seen /hpf Urine Mucus Few None Seen Urine Glucose Normal Normal mg/dL TECHNIQUE: Axial CT images of the abdomen and pelvis were obtained without IV contrast. FINDINGS: Motion artifact limits evaluation. Lung bases: Respiratory motion artifact limits evaluation. Liver: Grossly unremarkable in its noncontrast enhanced appearance. No abnormal density or focal lesion identified. Biliary: Multiple small, low-density gallstones within the gallbladder. Spleen: Unremarkable. Pancreas: Moderate peripancreatic inflammatory stranding and fluid consistent with acute pancreatitis in the appropriate clinical setting. No organized peripancreatic fluid collection identified at this time. Adrenal glands: Unremarkable. No mass. Kidneys: No hydronephrosis. No renal or ureteral calculi. Aorta/Vascular: No aneurysm or significant calcification. Lymph nodes: No mass or lymphadenopathy. Bowel/mesentery: Nonspecific nondilated fluid-filled small bowel loops. No small bowel obstruction. Appendix is not visualized. Scattered small colonic diverticula without adjacent inflammatory changes to suggest diverticulitis. Pelvic organs: Grossly unremarkable. Bladder: Unremarkable. No mass. Abdominal wall: No mass or hernia. Bones: No acute fracture or suspicious intraosseous lesion. IMPRESSION: 1. Findings consistent with acute pancreatitis as described above. No organized peripancreatic fluid collection identified at this time. 2. Cholelithiasis. 3. Nonspecific nondilated fluid-filled small bowel loops. Findings may be seen with ileus or enteritis in the appropriate clinical setting. No small bowel obstruction. 4. Scattered small colonic diverticula without adjacent inflammatory changes to suggest diverticulitis. 5. Motion limited study. 6. Additional findings as described above. SEPSIS Sepsis Screen Date sepsis recognized/suspect: Feb 09, 2025 Time Sepsis recognized/suspect: 1019 Recent Procedure: No On Antibiotic Therapy: No Respiratory Rate >20: No Heart Rate >90: Yes Temp<36 C (96.8 F) or >38.3 C: No SBP <90 or MAP <65 mmHG: No New Acute Mental Status Change: No Is the patient on CPAP, BIPAP,: No Physician Orders Ct Ab Pel Wo Con-No Oral Or Iv (02/09/25 11:01) Sodium Chloride 0.9% (02/09/25 12:30) Admit (02/09/25 15:57) Code Status (02/09/25 15:57) Sodium Chloride 0.9% (02/09/25 16:00) Hydrocodone-Acet 5/325mg Tab ([place] 5/32 (02/09/25 16:00) Ondansetron Hcl (Zofran) (02/09/25 16:00) Docusate Sodium Capsule (Colace Capsule) (02/09/25 16:00) Complete Blood Count (02/10/25 04:00) Comprehensive Metabolic Panel (02/10/25 04:00) Npo (Nothing By Mouth) Diet (02/09/25 Dinner) Condition: Serious (02/09/25 15:57) Acetaminophen Tablet (Tylenol Tablet) (02/09/25 16:00) Morphine Sulfate Injection (02/09/25 16:00) Vital Signs Date Time Temp Pulse Resp B/P (MAP) Pulse Ox O2 Delivery O2 Flow Rate FiO2 02/09/25 14:09 98.6 88 17 144/94 (111) 98 98.6 02/09/25 11:48 92 18 148/96 02/09/25 11:43 98.6 92 18 148/96 (113) 98 98.6 02/09/25 10:19 98.2 75 16 127/88 96 98.2 Laboratory Tests Test 02/09/25 11:49 White Blood Count 16.5 10^3/uL (4.4-10.8) H Medications Medications Dose Ordered Sig/Gisella Route Start Time Stop Time Status Last Admin Dose Admin Ceftriaxone Sodium 50 ml @ 100 mls/hr ONCE ONCE IV 02/09/25 12:30 02/09/25 12:59 DC 02/09/25 13:05 100 MLS/HR Metronidazole 100 ml @ 100 mls/hr ONCE ONCE IV 02/09/25 12:30 02/09/25 13:29 DC 02/09/25 15:00 100 MLS/HR Morphine Sulfate 4 mg ONCE ONCE IV 02/09/25 11:15 02/09/25 11:16 DC 02/09/25 11:48 4 MG Ondansetron HCl 4 mg ONCE ONCE IV 02/09/25 11:15 02/09/25 11:16 DC 02/09/25 11:48 4 MG Sodium Chloride 1,000 ml @ 1,000 mls/hr Q1H ONCE IV 02/09/25 12:30 02/09/25 13:29 DC 02/09/25 13:05 1,000 MLS/HR Assessment/Plan Assessment/Plan Assessment: Acute pancreatitis, Transaminitis, Hyperbilirubinemia, Leukocytosis, Plan: Admit to Med-Surg, GI consult, NPO, IV fluids, IV antibiotics, Liver ultrasound, Antiemetics, Pain management, Plan discussed with: Patient My Orders Orders - CLAUDY TRUONG Procedure Category Date Status Time Admit ADMIT 02/09/25 Transmitted 15:57 Code Status CODE 02/09/25 Transmitted 15:57 Sodium Chloride 0.9% PHA 02/09/25 Logged 16:00 Hydrocodone-Acet PHA 02/09/25 Logged 5/325mg Tab ([place] 16:00 Ondansetron Hcl PHA 02/09/25 Logged (Zofran) 16:00 Docusate Sodium PHA 02/09/25 Logged Capsule (Colace 16:00 Complete Blood Count LAB 02/10/25 Verified 04:00 Comprehensive LAB 02/10/25 Verified Metabolic Panel 04:00 Npo (Nothing By DIET 02/09/25 Transmitted Mouth) Diet Dinner Condition: Serious [place] 02/09/25 In Process 15:57 Acetaminophen Tablet PHA 02/09/25 Logged (Tylenol Tablet) 16:00 Morphine Sulfate PHA 02/09/25 Logged Injection 16:00 Date of Service: Feb 09, 2025 Billing Provider: CLAUDY TRUONG Common Visit Codes: [id number] INP/OBS CARE (MOD) CLAUDY TRUONG Feb 09, 2025 16:30
[2025-02-09 17:06] VITALS: BP 156/99; PULSE 81; RESP 20; TEMP 98.8; O2SAT 99
[2025-02-09] MEDS: ONDANSETRON HCL 4 MG/2 ML VIAL IV PRN (17:46)
[2025-02-09] MEDS: MORPHINE SULFATE INJ 2 MG/ml SYRG IV PRN (17:47)
--- NOTE | 2025-02-09 19:14 | DVH ---
ULTRASOUND ABDOMEN, LIMITED RIGHT UPPER QUADRANT: REASON FOR EXAM: Transaminitis, Hyperbilirubinemia, TECHNIQUE: Real-time sector scans in the transverse and longitudinal planes were obtained through the right upper quadrant of the abdomen. FINDINGS: The liver is of normal size and contour. There is hepatopetal flow in the portal vein. There is no intrahepatic biliary ductal dilatation. The common bile duct measures 5 mm. There are several tiny shadowing gallstones filling the gallbladder. There is no gallbladder wall thickening nor pericholecystic fluid. There is no sonographic Haque's sign. The pancreas is largely obscured by bowel gas and is poorly visualized. The right kidney measures 9.3 cm. No hydronephrosis or nephrolithiasis is identified. There is no evidence of right renal mass or cyst. The visualized portions of the abdominal aorta demonstrate no evidence of aneurysmal dilatation. The visualized inferior vena cava is unremarkable. There is no free fluid identified in the right upper quadrant. IMPRESSION: Cholelithiasis without other evidence of acute cholecystitis. No sonographic Haque's sign. Sonographic appearance of the liver is within normal limits.
[2025-02-09 20:00] VITALS: PULSE 76
[2025-02-09 21:00] VITALS: BP 144/96; PULSE 77; TEMP 97.1; O2SAT 98
[2025-02-10] MEDS: HYDROcodone-ACET 5/325MG TAB PO PRN (00:47)
[2025-02-10 01:00] VITALS: BP 145/96; PULSE 88; RESP 18; TEMP 97.6; O2SAT 99
[2025-02-10 05:00] VITALS: BP 144/92; PULSE 76; RESP 18; TEMP 98; O2SAT 98
[2025-02-10 06:35] LABS: Hematocrit 47.1 % (41.0-53.0); Hemoglobin 16.3 g/dL (13.5-17.5); Mean Corpuscular Hemoglobin 29.2 pg (28.0-32.0); Mean Corpuscular Volume 84.3 fL (80.0-100.0); Nucleated Red Blood Cells % 0.0 %
[2025-02-10] MEDS: MORPHINE SULFATE 4 MG/ML SYR/VIAL IV PRN ×2 (06:41→19:53)
[2025-02-10 07:06] LABS: Anion Gap 13 (5-15); BUN/Creatinine Ratio 21.5 (10.0-20.0); Blood Urea Nitrogen 17 mg/dL (9-23); Calcium 9.0 mg/dL (8.7-10.4); Carbon Dioxide 23 mmol/L (20-31); Chloride 103 mmol/L (98-107); Potassium 3.9 mmol/L (3.5-5.1); Sodium 139 mmol/L (136-145); Total Protein 6.7 g/dL (5.7-8.2)
[2025-02-10 07:07] LABS: Albumin 4.1 g/dL (3.2-4.8)
[2025-02-10 07:08] LABS: Alanine Aminotransferase 434 U/L (7-40); Alkaline Phosphatase 121 U/L (46-116); Amylase 674 U/L (30-118); Bilirubin, Total 1.6 mg/dL (0.2-1.0); Glucose 149 mg/dL (74-106)
[2025-02-10 07:23] LABS: Lipase 848 U/L (12-53)
[2025-02-10 08:30] VITALS: BP 135/96; PULSE 102; RESP 17; TEMP 98.3; O2SAT 98
[2025-02-10 12:30] VITALS: BP 146/94; PULSE 91; RESP 20; TEMP 97.8; O2SAT 99
--- NOTE | 2025-02-10 15:46 | DVHPN2 ---
Subjective PATIENT IS HERE FOR ACUTE PANCREATITIS STILL COMPLAINING OF 9/10 PAIN ABDOMINAL PAIN. Changes from previous H/P or p: No Changes Eyes: No Pain, No Vision change, No Conjunctivae inflammation, No Eyelid inflammation, No Other, No Redness ENT: No Ear pain, No Ear discharge, No Nose pain, No Nose discharge, No Nose congestion, No Mouth pain, No Mouth swelling, No Throat pain, No Throat swelling, No Other Cardiovascular: No Chest Pain, No Palpitations, No Orthopnea, No Paroxysmal Noc. Dyspnea, No Edema, No Lt Headedness, No Other Respiratory: No Cough, No Dry, No Shortness of breath, No SOB with excertion, No Wheezing, No Hemoptysis, No Pleuritic Pain, No Sputum, No Other Gastrointestinal: Nausea; No Vomiting; Abdominal Pain; No Diarrhea, No Constipation, No Melena, No Hematochezia, No Other Genitourinary: No Dysuria, No Frequency, No Incontinence, No Hematuria, No Retention, No Other Musculoskeletal: No other, No neck pain, No shoulder pain, No arm pain, No back pain, No hand pain, No leg pain, No foot pain Skin: No Rash, No Lesions, No Jaundice, No Bruising, No Other Objective Vitals Vital Signs Date Time Temp Pulse Resp B/P (MAP) Pulse Ox O2 Delivery O2 Flow Rate FiO2 02/10/25 12:30 97.8 91 20 146/94 (111) 99 97.8 02/10/25 07:30 Room Air* 0 21 Intake/Output Intake and Output 02/10/25 07:00 Intake Total 300 ml Balance 300 ml Intake IV Total 300 ml Exam HEENT PUPILS ARE REACTIVE NECK IS SUPPLE CV IS S1-S2 REGULAR RATE AND RHYTHM RESPIRATORY DIMINISHED LUNG SOUNDS AT BASES GI POSITIVE BOWEL SOUNDS POSITIVE TENDERNESS IN THE EPIGASTRIC AND LEFT UPPER QUADRANT WITH A MINIMAL GUARDING NO RIGIDITY EXTREMITY NO EDEMA PIPE CONNECTOR NO MOTOR DEFICIT Medications Current Medications Medications Dose Ordered Sig/Gisella Route Start Time Stop Time Status Last Admin Dose Admin Sodium Chloride 1,000 ml @ 120 mls/hr Q8H20M IV 02/09/25 16:00 02/10/25 09:20 120 MLS/HR Acetaminophen/ Hydrocodone Bitart 1 tab Q4HP PRN PO 02/09/25 16:00 02/10/25 00:47 1 TAB Ondansetron HCl 4 mg Q4HP PRN IV 02/09/25 16:00 02/09/25 17:46 4 MG Docusate Sodium 100 mg BIDPRN PRN PO 02/09/25 16:00 Acetaminophen 650 mg Q6HP PRN PO 02/09/25 16:00 Ceftriaxone Sodium 50 ml @ 100 mls/hr DAILY@09 IV 02/10/25 09:00 02/10/25 09:19 100 MLS/HR Metronidazole 100 ml @ 100 mls/hr Q8HR IV 02/09/25 22:00 02/10/25 13:04 100 MLS/HR Morphine Sulfate 2 mg Q3HPRN PRN IV 02/10/25 12:45 Laboratory Results Laboratory Tests 02/10/25 05:51 Chemistry Test 02/10/25 05:51 Albumin 4.1 g/dL (3.2-4.8) Calcium Level 9.0 mg/dL (8.7-10.4) Total Protein 6.7 g/dL (5.7-8.2) Lipid panel Test 02/10/25 05:51 Lipase 848 U/L (12-53) H LFT Test 02/10/25 05:51 Alanine Aminotransferase (ALT) 434 U/L (7-40) H Alkaline Phosphatase 121 U/L (46-116) H Aspartate Amino Transferase (AST) 109 U/L (13-40) H Total Bilirubin 1.6 mg/dL (0.2-1.0) H Urinalysis Test 02/09/25 11:20 Urine Color Dark-yellow (Yellow) Urine Clarity Turbid (Clear) H Urine pH 5.5 (5.0-9.0) Urine Specific [place] 1.017 (1.001-1.035) Urine Protein 1+ (Negative) H Urine Ketones Negative (Negative) Urine Blood Negative /uL (Negative) Urine Nitrite Negative (Negative) Urine Bilirubin 2+ (Negative) Urine Urobilinogen Normal mg/dL (Negative) Urine Leukocyte Esterase Negative /uL (Negative) Urine RBC <1 /hpf (0 - 3) Urine Microscopic WBC 2 /HPF (0-3) Urine Squamous Epithelial Cells Few /hpf (<5) Urine Bacteria Few /hpf (None Seen) H Urine Mucus Few (None Seen) Urine Glucose Normal mg/dL (Normal) Assessment/Plan Assessment/Plan 49-YEAR-OLD MALE WITH A NO SIGNIFICANT PAST MEDICAL HISTORY EXCEPT HEAVY ALCOHOL USE PRESENTED TO THE HOSPITAL WITH THE ABDOMINAL PAIN FOUND TO HAVE 1. ACUTE PANCREATITIS LIKELY SECONDARY TO HEAVY ALCOHOL DISEASE 2. CHRONIC ALCOHOLISM 3. LEUKOCYTOSIS 4. TRANSAMINITIS 5. MORBID OBESITY CLASSI -KEEP NPO, IV FLUIDS, IV PAIN MEDS AND ANTIEMETICS -CHECK HEPATITIS PANEL Plan discussed with: Patient My Orders Orders - SARTHAK JIMÉNEZ MD Procedure Category Date Status Time Morphine Sulfate PHA 02/10/25 In Process Injection 12:45 Problem List: (1) Acute abdominal pain (2) Acute pancreatitis Date of Service: Feb 10, 2025 Billing Provider: SARTHAK JIMÉNEZ MD Common Visit Codes: [id number] INP/OBS CARE(HIGH) SARTHAK JIMÉNEZ MD Feb 10, 2025 15:46
[2025-02-10] MEDS: SODIUM CHLORIDE 0.9% 1,000 ML IV SCH (16:00)
[2025-02-10 20:00] VITALS: RESP 18; O2SAT 98
[2025-02-10 21:00] VITALS: BP 120/81; PULSE 128; RESP 16; TEMP 98.3; O2SAT 96
[2025-02-11 01:00] VITALS: BP 104/67; PULSE 125; RESP 14; TEMP 97.4; O2SAT 95
[2025-02-11 05:00] VITALS: BP 126/87; PULSE 110; RESP 16; TEMP 98.5; O2SAT 95
[2025-02-11 08:27] VITALS: BP 137/93; PULSE 114; RESP 20; TEMP 98.2; O2SAT 95
--- NOTE | 2025-02-11 09:04 | DVHINCON2 ---
Date of service: Feb 11, 2025 Referring Physician Kushal Reason for Consultation Acute pancreatitis History of Present Illness The patient is a 49-year-old male admitted with abdominal pain, nausea and vomiting, found to have acute pancreatitis. Imaging studies show gallstones. Patient also had elevation of transaminases. He has no prior history of pancreatitis. Patient does have an alcohol history. There is no family history of gastrointestinal diseases or malignancies other than some family members with gallstones and had a cholecystectomy. She consultation was obtained for evaluation. Patient states that he continues to have abdominal pain. He is not passing gas. Pain is epigastric and sharp in nature. Patient also feels bloated. Past Medical History No significant past medical history Past Surgical History History oral surgery in the past Family History: Diabetes mellitus G8 MOTHER Hypertension G8 MOTHER Family History As above Social History Alcohol use history No tobacco or recreational drug use history Allergies: Coded Allergies: NO KNOWN ALLERGIES (Unverified , 08/24/24) Current Medications Current Medications Medications (Trade) Dose Ordered Sig/Gisella Route PRN Reason Start Time Stop Time Status Last Admin Ceftriaxone Sodium 50 ml @ 100 mls/hr DAILY@09 IV 02/10/25 09:00 02/11/25 08:13 Morphine Sulfate 2 mg Q3HPRN PRN IV SEVERE PAIN (7-10 PAIN SCALE) 02/10/25 12:45 02/11/25 01:56 Sodium Chloride 1,000 ml @ 150 mls/hr Q6H40M IV 02/10/25 16:00 02/10/25 22:40 Review of Systems 12 point review of systems negative other than HPI Vital Signs Vital Signs Date Time Temp Pulse Resp B/P (MAP) Pulse Ox O2 Delivery O2 Flow Rate FiO2 02/11/25 08:27 98.2 114 20 137/93 (108) 95 98.2 02/11/25 08:10 Room Air* 0 21 Physical Exam General: Alert and oriented x4 HEENT: NC/AT-EOMI PERRLA Op clear Heart: Regular rate and rhythm Abdomen: Soft distended, moderate tenderness to palpation Extremities: No clubbing cyanosis edema Neuro: Cranial nerves 2-12 grossly intact moves all 4 extremity Labs/Diagnostic Data Labs Test 02/10/25 05:51 02/09/25 11:20 Range/Units White Blood Count 18.5 H 4.4-10.8 10^3/uL Red Blood Count 5.59 4.5-5.90 10^6/uL Hemoglobin 16.3 13.5-17.5 g/dL Hematocrit 47.1 # 41.0-53.0 % Mean Corpuscular Volume 84.3 80.0-100.0 fL Mean Corpuscular Hemoglobin 29.2 28.0-32.0 pg Mean Corpuscular Hemoglobin Concent 34.7 32.0-36.0 g/dL Red Cell Distribution Width 13.5 11.8-14.3 % Platelet Count 245 140-450 10^3/uL Mean Platelet Volume 9.7 6.9-10.8 fL Neutrophils (%) (Auto) 88.8 H 37.0-80.0 % Lymphocytes (%) (Auto) 4.7 L 10.0-50.0 % Monocytes (%) (Auto) 6.5 0.0-12.0 % Eosinophils (%) (Auto) 0.0 0.0-7.0 % Basophils (%) (Auto) 0.0 0.0-2.0 % Neutrophils # (Auto) 16.4 H 1.6-8.6 10 ^3/uL Lymphocytes # (Auto) 0.9 0.4-5.4 10 ^3/uL Monocytes # (Auto) 1.2 0-1.3 10 ^3/uL Eosinophils # (Auto) 0 0-0.8 10 ^3/uL Basophils # (Auto) 0 0-0.2 10 ^3/uL Nucleated Red Blood Cells 0.0 % Sodium Level 139 136-145 mmol/L Potassium Level 3.9 3.5-5.1 mmol/L Chloride Level 103 98-107 mmol/L Carbon Dioxide Level 23 20-31 mmol/L Anion Gap 13 5-15 Blood Urea Nitrogen 17 9-23 mg/dL Creatinine 0.79 0.700-1.30 mg/dL Glomerular Filtration Rate Calc 110 >90 mL/min BUN/Creatinine Ratio 21.5 H 10.0-20.0 Serum Glucose 149 H 74-106 mg/dL Calcium Level 9.0 8.7-10.4 mg/dL Total Bilirubin 1.6 H 0.2-1.0 mg/dL Aspartate Amino Transferase (AST) 109 H 13-40 U/L Alanine Aminotransferase (ALT) 434 H 7-40 U/L Alkaline Phosphatase 121 H 46-116 U/L Total Protein 6.7 5.7-8.2 g/dL Albumin 4.1 3.2-4.8 g/dL Amylase Level 674 H 30-118 U/L Lipase 848 H 12-53 U/L Urine Color Dark-yellow Yellow Urine Clarity Turbid H Clear Urine pH 5.5 5.0-9.0 Urine Specific [place] 1.017 1.001-1.035 Urine Protein 1+ H Negative Urine Ketones Negative Negative Urine Blood Negative Negative /uL Urine Nitrite Negative Negative Urine Bilirubin 2+ Negative Urine Urobilinogen Normal Negative mg/dL Urine Leukocyte Esterase Negative Negative /uL Urine RBC <1 0 - 3 /hpf Urine Microscopic WBC 2 0-3 /HPF Urine Squamous Epithelial Cells Few <5 /hpf Urine Bacteria Few H None Seen /hpf Urine Mucus Few None Seen Urine Glucose Normal Normal mg/dL Assessment Acute pancreatitis abdominal pain Cholelithiasis Transaminitis Leukocytosis Problems(with codes): (1) Gallstones (2) Acute pancreatitis (3) Acute abdominal pain Plan/Recommendation 1. IV fluids 2. Clear liquid diet as tolerated 3. Continue antibiotics 4. Pain control 5. Consider MRCP 6. Surgical consultation should be obtained 7. Follow labs, replace electrolytes as needed Plan discussed with: Patient VISHAL DUNN MD Feb 11, 2025 09:04
[2025-02-11 12:40] VITALS: BP 116/82; PULSE 94; RESP 18; TEMP 99.4; O2SAT 100
[2025-02-11 13:14] LABS: Hematocrit 44.9 % (41.0-53.0); Hemoglobin 15.2 g/dL (13.5-17.5); Mean Corpuscular Hemoglobin 28.6 pg (28.0-32.0); Mean Corpuscular Volume 84.2 fL (80.0-100.0); Nucleated Red Blood Cells % 0.0 %
[2025-02-11 13:25] LABS: Alkaline Phosphatase 90 U/L (46-116); Anion Gap 10 (5-15); BUN/Creatinine Ratio 17.2 (10.0-20.0); Blood Urea Nitrogen 11 mg/dL (9-23); Carbon Dioxide 24 mmol/L (20-31); Chloride 103 mmol/L (98-107); Sodium 137 mmol/L (136-145); Total Protein 6.0 g/dL (5.7-8.2)
[2025-02-11 13:26] LABS: Albumin 3.8 g/dL (3.2-4.8)
[2025-02-11 13:30] LABS: Alanine Aminotransferase 210 U/L (7-40); Amylase 318 U/L (30-118); Bilirubin, Total 1.3 mg/dL (0.2-1.0); Calcium 8.4 mg/dL (8.7-10.4); Glucose 118 mg/dL (74-106); Lipase 179 U/L (12-53); Potassium 3.2 mmol/L (3.5-5.1)
[2025-02-11] MEDS ORDERED: CLINIMIX PER PHARMACY 0 ML IV SCH (13:45)
[2025-02-11] MEDS ORDERED: DEXTROSE (50%) 50ML SYRG IV SCH (14:00)
[2025-02-11 14:21] LABS: Magnesium 1.7 mg/dL (1.6-2.6); Triglycerides 55.0 mg/dL (< 150)
[2025-02-11 14:23] LABS: Albumin 3.7 g/dL (3.2-4.8)
[2025-02-11] MEDS: POTASSIUM PHOSPHATE 44 MEQ in D5W 5% 250 ML IV ONE (16:00)
--- NOTE | 2025-02-11 16:49 | DVHPN2 ---
Subjective Patient is complaining of 8/10 pain in the epigastric and left upper quadrant. Denies any nausea and vomiting. Changes from previous H/P or p: No Changes Eyes: No Pain, No Vision change, No Conjunctivae inflammation, No Eyelid inflammation, No Other, No Redness ENT: No Ear pain, No Ear discharge, No Nose pain, No Nose discharge, No Nose congestion, No Mouth pain, No Mouth swelling, No Throat pain, No Throat swelling, No Other Cardiovascular: No Chest Pain, No Palpitations, No Orthopnea, No Paroxysmal Noc. Dyspnea, No Edema, No Lt Headedness, No Other Respiratory: No Cough, No Dry, No Shortness of breath, No SOB with excertion, No Wheezing, No Hemoptysis, No Pleuritic Pain, No Sputum, No Other Gastrointestinal: Nausea; No Vomiting; Abdominal Pain; No Diarrhea, No Constipation, No Melena, No Hematochezia, No Other Genitourinary: No Dysuria, No Frequency, No Incontinence, No Hematuria, No Retention, No Other Musculoskeletal: No other, No neck pain, No shoulder pain, No arm pain, No back pain, No hand pain, No leg pain, No foot pain Skin: No Rash, No Lesions, No Jaundice, No Bruising, No Other Objective Vitals Vital Signs Date Time Temp Pulse Resp B/P (MAP) Pulse Ox O2 Delivery O2 Flow Rate FiO2 02/11/25 12:40 99.4 94 18 116/82 (93) 100 99.4 02/11/25 08:10 Room Air* 0 21 Intake/Output Intake and Output 02/11/25 07:00 Intake Total 2050 ml Output Total 500 ml Balance 1550 ml Intake Oral 700 ml IV Total 1350 ml Output Urine Total 500 ml Exam HEENT PUPILS ARE REACTIVE NECK IS SUPPLE CV IS S1-S2 REGULAR RATE AND RHYTHM RESPIRATORY DIMINISHED LUNG SOUNDS AT BASES GI POSITIVE BOWEL SOUNDS POSITIVE TENDERNESS IN THE EPIGASTRIC AND LEFT UPPER QUADRANT WITH A MINIMAL GUARDING NO RIGIDITY EXTREMITY 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 Medications Current Medications Medications Dose Ordered Sig/Gisella Route Start Time Stop Time Status Last Admin Dose Admin Acetaminophen/ Hydrocodone Bitart 1 tab Q4HP PRN PO 02/09/25 16:00 02/10/25 00:47 1 TAB Ondansetron HCl 4 mg Q4HP PRN IV 02/09/25 16:00 02/09/25 17:46 4 MG Docusate Sodium 100 mg BIDPRN PRN PO 02/09/25 16:00 Acetaminophen 650 mg Q6HP PRN PO 02/09/25 16:00 Ceftriaxone Sodium 50 ml @ 100 mls/hr DAILY@09 IV 02/10/25 09:00 02/11/25 08:13 100 MLS/HR Metronidazole 100 ml @ 100 mls/hr Q8HR IV 02/09/25 22:00 02/11/25 13:26 100 MLS/HR Morphine Sulfate 2 mg Q3HPRN PRN IV 02/10/25 12:45 02/11/25 01:56 2 MG Sodium Chloride 1,000 ml @ 150 mls/hr Q6H40M IV 02/10/25 16:00 02/11/25 12:00 150 MLS/HR Amino Acids 0 ml @ 0 mls/hr PER PHARMACY IV 02/11/25 13:45 Diagnostic Test (Pha) 1 strip Q6HR 02/11/25 18:00 Insulin Human Regular FOLLOW SLIDING SCALE Q6HR SC 02/11/25 18:00 Dextrose 50 ml UD IV 02/11/25 14:00 Amino Acids/ Electrolytes/ Dextrose 1,000 ml @ 41 mls/hr DAILY@2200 IV 02/11/25 22:00 Laboratory Results Laboratory Tests 02/11/25 12:51 Chemistry Test 02/11/25 12:51 Albumin 3.7 g/dL (3.2-4.8) Calcium Level 8.4 mg/dL (8.7-10.4) L Magnesium Level 1.7 mg/dL (1.6-2.6) Phosphorus Level 1.6 mg/dL (2.4-5.1) L Total Protein 6.0 g/dL (5.7-8.2) Lipid panel Test 02/11/25 12:51 Lipase 179 U/L (12-53) H Triglycerides Level 55 mg/dL (< 150) LFT Test 02/11/25 12:51 Alanine Aminotransferase (ALT) 210 U/L (7-40) H Alkaline Phosphatase 90 U/L (46-116) Aspartate Amino Transferase (AST) 38 U/L (13-40) Total Bilirubin 1.3 mg/dL (0.2-1.0) H Urinalysis Test 02/09/25 11:20 Urine Color Dark-yellow (Yellow) Urine Clarity Turbid (Clear) H Urine pH 5.5 (5.0-9.0) Urine Specific [place] 1.017 (1.001-1.035) Urine Protein 1+ (Negative) H Urine Ketones Negative (Negative) Urine Blood Negative /uL (Negative) Urine Nitrite Negative (Negative) Urine Bilirubin 2+ (Negative) Urine Urobilinogen Normal mg/dL (Negative) Urine Leukocyte Esterase Negative /uL (Negative) Urine RBC <1 /hpf (0 - 3) Urine Microscopic WBC 2 /HPF (0-3) Urine Squamous Epithelial Cells Few /hpf (<5) Urine Bacteria Few /hpf (None Seen) H Urine Mucus Few (None Seen) Urine Glucose Normal mg/dL (Normal) Assessment/Plan Assessment/Plan 49-YEAR-OLD MALE WITH A NO SIGNIFICANT PAST MEDICAL HISTORY EXCEPT HEAVY ALCOHOL USE PRESENTED TO THE HOSPITAL WITH THE ABDOMINAL PAIN FOUND TO HAVE 1. ACUTE PANCREATITIS LIKELY SECONDARY TO HEAVY ALCOHOL DISEASE 2. CHRONIC ALCOHOLISM 3. LEUKOCYTOSIS 4. TRANSAMINITIS 5. MORBID OBESITY CLASSI -KEEP NPO, IV FLUIDS, IV PAIN MEDS AND ANTIEMETICS -repeat amylase and lipase Plan discussed with: Patient My Orders Orders - SARTHAK JIMÉNEZ MD Procedure Category Date Status Time Complete Blood Count LAB 02/12/25 Verified 06:00 Magnesium LAB 02/12/25 Verified 06:00 Comprehensive LAB 02/12/25 Verified Metabolic Panel 04:00 Amylase LAB 02/12/25 Verified 04:00 Lipase LAB 02/12/25 Verified 04:00 [facility] 02/11/25 In Process 13:32 [facility] Per [facility] 02/11/25 In Process 13:45 Glucose Blood PHA 02/11/25 In Process (Accu-Chek Comfort 18:00 Insulin R (Human) PHA 02/11/25 In Process (Insulin R) 18:00 Dextrose 50% Syringe PHA 02/11/25 In Process 14:00 Magnesium LAB 02/12/25 Verified 04:00 Phosphorus LAB 02/12/25 Verified 04:00 [facility] 02/11/25 In Process 22:00 Amino Acid Infusion [facility]A 02/11/25 In Process In D10w ([facility] 4. 22:00 Potassium Phosphate PHA 02/11/25 In Process 15:00 Date of Service: Feb 11, 2025 Billing Provider: SARTHAK JIMÉNEZ MD Common Visit Codes: [id number] INP/OBS CARE(HIGH) SARTHAK JIMÉNEZ MD Feb 11, 2025 16:49
[2025-02-11 17:00] VITALS: BP 136/90; PULSE 104; RESP 18; TEMP 101; O2SAT 95
[2025-02-11] MEDS: InsuLIN REG 1unit/0.01ml Soln (100units/ml) SC SCH (17:29)
[2025-02-11] MEDS: ACCU-CHEK COMFORT CURVE STRIP VI SCH (17:29)
[2025-02-11 21:00] VITALS: BP 114/80; PULSE 100; RESP 20; TEMP 98.7; O2SAT 96
[2025-02-11] MEDS: AMINO ACID INFUSION IN D10W 1,000 ML IV SCH (23:32)
[2025-02-12] VITALS (8 sets, daily range): BP systolic 110–129; BP diastolic 70–90; PULSE 90–106; RESP 17–19; TEMP 97.5–100.3; O2SAT 95–98
[2025-02-12 06:32] LABS: Hematocrit 41.0 % (41.0-53.0); Hemoglobin 14.2 g/dL (13.5-17.5); Mean Corpuscular Hemoglobin 29.2 pg (28.0-32.0); Mean Corpuscular Volume 84.0 fL (80.0-100.0); Nucleated Red Blood Cells % 0.0 %
[2025-02-12 06:49] LABS: Alkaline Phosphatase 101 U/L (46-116); Anion Gap 9 (5-15); BUN/Creatinine Ratio 21.0 (10.0-20.0); Blood Urea Nitrogen 13 mg/dL (9-23); Carbon Dioxide 26 mmol/L (20-31); Chloride 102 mmol/L (98-107); Magnesium 2.0 mg/dL (1.6-2.6); Sodium 137 mmol/L (136-145); Total Protein 6.0 g/dL (5.7-8.2)
[2025-02-12 06:50] LABS: Albumin 3.7 g/dL (3.2-4.8); Bilirubin, Total 1.2 mg/dL (0.2-1.0)
[2025-02-12 06:53] LABS: Alanine Aminotransferase 166 U/L (7-40); Amylase 173 U/L (30-118); Calcium 8.5 mg/dL (8.7-10.4); Glucose 126 mg/dL (74-106); Lipase 74 U/L (12-53); Potassium 3.1 mmol/L (3.5-5.1)
--- NOTE | 2025-02-12 10:26 | PRN ---
Misceleneous Note Note Note February 12, 2025 Subjective: The patient continues to have abdominal pain Current Medications Medications (Trade) Dose Ordered Sig/Gisella Route PRN Reason Start Time Stop Time Status Last Admin Amino Acids 0 ml @ 0 mls/hr PER PHARMACY IV 02/11/25 13:45 Amino Acids/ Electrolytes/ Dextrose 1,000 ml @ 41 mls/hr DAILY@2200 IV 02/11/25 22:00 02/11/25 23:32 Dextrose 50 ml UD IV 02/11/25 14:00 Diagnostic Test (Pha) (Accu-Chek Comfort Curve T) 1 strip Q6HR 02/11/25 18:00 02/12/25 05:06 Insulin Human Regular (InsuLIN R) FOLLOW SLIDING SCALE Q6HR SC 02/11/25 18:00 02/12/25 05:12 Vital Signs Date Time Temp Pulse Resp B/P (MAP) Pulse Ox O2 Delivery O2 Flow Rate FiO2 02/12/25 08:30 99.8 92 18 113/70 (84) 97 99.8 02/11/25 20:00 Room Air* 0 21 Physical examination: General Appearance: Alert, Oriented X3, Cooperative, No acute distress HEENT: Atraumatic, PERRLA, EOMI, Mucous membrane moist/pink Abdominal: Normal bowel sounds, moderate tenderness to palpation Extremities: No clubbing, No cyanosis, No edema, Normal pulses, No tenderness/swelling Skin: No rashes, No breakdown, No significant lesion Neuro: Normal Psych/Mental Status: Mental status NL, Mood NL Labs Test 02/12/25 05:41 02/12/25 05:04 02/11/25 12:51 02/09/25 11:20 Range/Units White Blood Count 17.2 H 4.4-10.8 10^3/uL Red Blood Count 4.88 4.5-5.90 10^6/uL Hemoglobin 14.2 13.5-17.5 g/dL Hematocrit 41.0 41.0-53.0 % Mean Corpuscular Volume 84.0 80.0-100.0 fL Mean Corpuscular Hemoglobin 29.2 28.0-32.0 pg Mean Corpuscular Hemoglobin Concent 34.8 32.0-36.0 g/dL Red Cell Distribution Width 13.2 11.8-14.3 % Platelet Count 187 140-450 10^3/uL Mean Platelet Volume 9.5 6.9-10.8 fL Neutrophils (%) (Auto) 88.4 H 37.0-80.0 % Lymphocytes (%) (Auto) 4.8 L 10.0-50.0 % Monocytes (%) (Auto) 6.7 0.0-12.0 % Eosinophils (%) (Auto) 0.0 0.0-7.0 % Basophils (%) (Auto) 0.1 0.0-2.0 % Neutrophils # (Auto) 15.2 H 1.6-8.6 10 ^3/uL Lymphocytes # (Auto) 0.8 0.4-5.4 10 ^3/uL Monocytes # (Auto) 1.2 0-1.3 10 ^3/uL Eosinophils # (Auto) 0 0-0.8 10 ^3/uL Basophils # (Auto) 0 0-0.2 10 ^3/uL Nucleated Red Blood Cells 0.0 % Sodium Level 137 136-145 mmol/L Potassium Level 3.1 L 3.5-5.1 mmol/L Chloride Level 102 98-107 mmol/L Carbon Dioxide Level 26 20-31 mmol/L Anion Gap 9 5-15 Blood Urea Nitrogen 13 9-23 mg/dL Creatinine 0.62 L 0.700-1.30 mg/dL Glomerular Filtration Rate Calc 118 >90 mL/min BUN/Creatinine Ratio 21.0 H 10.0-20.0 Serum Glucose 126 H 74-106 mg/dL Calcium Level 8.5 L 8.7-10.4 mg/dL Phosphorus Level 1.8 L 2.4-5.1 mg/dL Magnesium Level 2.0 1.6-2.6 mg/dL Total Bilirubin 1.2 H 0.2-1.0 mg/dL Aspartate Amino Transferase (AST) 33 13-40 U/L Alanine Aminotransferase (ALT) 166 H 7-40 U/L Alkaline Phosphatase 101 46-116 U/L Total Protein 6.0 5.7-8.2 g/dL Albumin 3.7 3.2-4.8 g/dL Amylase Level 173 H 30-118 U/L Lipase 74 H 12-53 U/L POC Glucose 144 H 70-106 mg/dl Triglycerides Level 55 < 150 mg/dL Urine Color Dark-yellow Yellow Urine Clarity Turbid H Clear Urine pH 5.5 5.0-9.0 Urine Specific [place] 1.017 1.001-1.035 Urine Protein 1+ H Negative Urine Ketones Negative Negative Urine Blood Negative Negative /uL Urine Nitrite Negative Negative Urine Bilirubin 2+ Negative Urine Urobilinogen Normal Negative mg/dL Urine Leukocyte Esterase Negative Negative /uL Urine RBC <1 0 - 3 /hpf Urine Microscopic WBC 2 0-3 /HPF Urine Squamous Epithelial Cells Few <5 /hpf Urine Bacteria Few H None Seen /hpf Urine Mucus Few None Seen Urine Glucose Normal Normal mg/dL Impression: Acute gallstone pancreatitis Abdominal pain Leukocytosis Recommendations: 1. Pain control 2. Clear liquid diet and advance as tolerated 3. Consider repeat imaging 4. Follow labs 5. Consider MRCP VISHAL DUNN MD Feb 12, 2025 10:26
[2025-02-12] MEDS: POTASSIUM PHOSPHATE 44 MEQ in D5W 5% 250 ML IV ONE (15:36)
[2025-02-13] VITALS (8 sets, daily range): BP systolic 106–131; BP diastolic 71–89; PULSE 85–90; RESP 16–19; TEMP 97.6–98.4; O2SAT 96–100
[2025-02-13 06:13] LABS: Albumin 3.5 g/dL (3.2-4.8); Alkaline Phosphatase 104 U/L (46-116); Anion Gap 9 (5-15); BUN/Creatinine Ratio 21.8 (10.0-20.0); Blood Urea Nitrogen 12 mg/dL (9-23); Carbon Dioxide 25 mmol/L (20-31); Magnesium 2.0 mg/dL (1.6-2.6); Total Protein 5.8 g/dL (5.7-8.2)
[2025-02-13 06:14] LABS: Alanine Aminotransferase 119 U/L (7-40); Bilirubin, Total 0.9 mg/dL (0.2-1.0); Calcium 8.2 mg/dL (8.7-10.4); Chloride 102 mmol/L (98-107); Glucose 134 mg/dL (74-106); Potassium 2.7 mmol/L (3.5-5.1); Sodium 136 mmol/L (136-145)
--- NOTE | 2025-02-13 11:47 | DVHPN2 ---
Reviewed: Care Plan, H&P Changes from previous H/P or p: No Changes General: Per HPI Eyes: No Pain, No Vision change, No Conjunctivae inflammation, No Eyelid inflammation, No Other, No Redness ENT: No Ear pain, No Ear discharge, No Nose pain, No Nose discharge, No Nose congestion, No Mouth pain, No Mouth swelling, No Throat pain, No Throat swelling, No Other Cardiovascular: No Chest Pain, No Palpitations, No Orthopnea, No Paroxysmal Noc. Dyspnea, No Edema, No Lt Headedness, No Other Respiratory: No Cough, No Dry, No Shortness of breath, No SOB with excertion, No Wheezing, No Hemoptysis, No Pleuritic Pain, No Sputum, No Other Gastrointestinal: Nausea, Abdominal Pain Genitourinary: No Dysuria, No Frequency, No Incontinence, No Hematuria, No Retention, No Other Musculoskeletal: No other, No neck pain, No shoulder pain, No arm pain, No back pain, No hand pain, No leg pain, No foot pain Skin: No Rash, No Lesions, No Jaundice, No Bruising, No Other Objective Vitals Vital Signs Date Time Temp Pulse Resp B/P (MAP) Pulse Ox O2 Delivery O2 Flow Rate FiO2 02/13/25 09:00 97.9 85 16 106/71 (83) 97 97.9 02/12/25 20:00 Room Air* 0 21 Intake/Output Intake and Output 02/13/25 07:00 Intake Total 2025 ml Output Total 300 ml Balance 1725 ml Intake Oral 675 ml IV Total 1350 ml Output Urine Total 300 ml # Voids 3 # Bowel Movements 1 Medications Current Medications Medications Dose Ordered Sig/Gisella Route Start Time Stop Time Status Last Admin Dose Admin Acetaminophen/ Hydrocodone Bitart 1 tab Q4HP PRN PO 02/09/25 16:00 02/10/25 00:47 1 TAB Ondansetron HCl 4 mg Q4HP PRN IV 02/09/25 16:00 02/09/25 17:46 4 MG Docusate Sodium 100 mg BIDPRN PRN PO 02/09/25 16:00 Acetaminophen 650 mg Q6HP PRN PO 02/09/25 16:00 Ceftriaxone Sodium 50 ml @ 100 mls/hr DAILY@09 IV 02/10/25 09:00 02/13/25 08:50 100 MLS/HR Metronidazole 100 ml @ 100 mls/hr Q8HR IV 02/09/25 22:00 02/13/25 05:05 100 MLS/HR Morphine Sulfate 2 mg Q3HPRN PRN IV 02/10/25 12:45 02/12/25 14:20 2 MG Sodium Chloride 1,000 ml @ 150 mls/hr Q6H40M IV 02/10/25 16:00 02/13/25 04:27 150 MLS/HR Amino Acids 0 ml @ 0 mls/hr PER PHARMACY IV 02/11/25 13:45 Diagnostic Test (Pha) 1 strip Q6HR 02/11/25 18:00 02/13/25 05:05 1 STRIP Insulin Human Regular FOLLOW SLIDING SCALE Q6HR SC 02/11/25 18:00 02/12/25 23:26 2 UNITS Dextrose 50 ml UD IV 02/11/25 14:00 Amino Acids/ Electrolytes/ Dextrose 1,000 ml @ 41 mls/hr DAILY@2200 IV 02/11/25 22:00 02/12/25 22:48 41 MLS/HR Laboratory Results Laboratory Tests 02/12/25 05:41 02/13/25 05:12 Chemistry Test 02/13/25 05:12 Albumin 3.5 g/dL (3.2-4.8) Calcium Level 8.2 mg/dL (8.7-10.4) L Magnesium Level 2.0 mg/dL (1.6-2.6) Phosphorus Level 1.9 mg/dL (2.4-5.1) L Total Protein 5.8 g/dL (5.7-8.2) LFT Test 02/13/25 05:12 Alanine Aminotransferase (ALT) 119 U/L (7-40) H Alkaline Phosphatase 104 U/L (46-116) Aspartate Amino Transferase (AST) 27 U/L (13-40) Total Bilirubin 0.9 mg/dL (0.2-1.0) Urinalysis Test 02/09/25 11:20 Urine Color Dark-yellow (Yellow) Urine Clarity Turbid (Clear) H Urine pH 5.5 (5.0-9.0) Urine Specific [place] 1.017 (1.001-1.035) Urine Protein 1+ (Negative) H Urine Ketones Negative (Negative) Urine Blood Negative /uL (Negative) Urine Nitrite Negative (Negative) Urine Bilirubin 2+ (Negative) Urine Urobilinogen Normal mg/dL (Negative) Urine Leukocyte Esterase Negative /uL (Negative) Urine RBC <1 /hpf (0 - 3) Urine Microscopic WBC 2 /HPF (0-3) Urine Squamous Epithelial Cells Few /hpf (<5) Urine Bacteria Few /hpf (None Seen) H Urine Mucus Few (None Seen) Urine Glucose Normal mg/dL (Normal) Assessment/Plan Assessment/Plan 49-YEAR-OLD MALE WITH A NO SIGNIFICANT PAST MEDICAL HISTORY EXCEPT HEAVY ALCOHOL USE PRESENTED TO THE HOSPITAL WITH THE ABDOMINAL PAIN FOUND TO HAVE 1. ACUTE PANCREATITIS LIKELY SECONDARY TO HEAVY ALCOHOL DISEASE 2. CHRONIC ALCOHOLISM 3. LEUKOCYTOSIS 4. TRANSAMINITIS 5. MORBID OBESITY CLASSI advance diet as tolerated Plan discussed with: Patient Date of Service: Feb 13, 2025 Billing Provider: TYRONE DOE DO Common Visit Codes: [id number] INP/OBS CARE(HIGH) TYRONE DOE DO Feb 13, 2025 11:47
[2025-02-13] MEDS: POTASSIUM CHL 20MEQ/100ML 100 ML IV SCH (12:35)
[2025-02-13] MEDS: SODIUM PHOSPHATES 40 MEQ in D5W 5% 250 ML IV ONE (14:00)
--- NOTE | 2025-02-13 19:48 | PRN ---
Misceleneous Note Note Note 02/13/25 feels better Vital Signs Date Time Temp Pulse Resp B/P (MAP) Pulse Ox O2 Delivery O2 Flow Rate FiO2 02/13/25 17:00 98.1 86 17 119/77 (91) 97 98.1 02/13/25 08:00 Room Air* 0 21 a/ox4 rrr soft mild ttp mild distention no c c e Labs Test 02/13/25 17:23 02/13/25 05:12 02/12/25 05:41 02/11/25 12:51 Range/Units POC Glucose 107 H 70-106 mg/dl Sodium Level 136 136-145 mmol/L Potassium Level 2.7 L 3.5-5.1 mmol/L Chloride Level 102 98-107 mmol/L Carbon Dioxide Level 25 20-31 mmol/L Anion Gap 9 5-15 Blood Urea Nitrogen 12 9-23 mg/dL Creatinine 0.55 L 0.700-1.30 mg/dL Glomerular Filtration Rate Calc 122 >90 mL/min BUN/Creatinine Ratio 21.8 H 10.0-20.0 Serum Glucose 134 H 74-106 mg/dL Calcium Level 8.2 L 8.7-10.4 mg/dL Phosphorus Level 1.9 L 2.4-5.1 mg/dL Magnesium Level 2.0 1.6-2.6 mg/dL Total Bilirubin 0.9 0.2-1.0 mg/dL Aspartate Amino Transferase (AST) 27 13-40 U/L Alanine Aminotransferase (ALT) 119 H 7-40 U/L Alkaline Phosphatase 104 46-116 U/L Total Protein 5.8 5.7-8.2 g/dL Albumin 3.5 3.2-4.8 g/dL White Blood Count 17.2 H 4.4-10.8 10^3/uL Red Blood Count 4.88 4.5-5.90 10^6/uL Hemoglobin 14.2 13.5-17.5 g/dL Hematocrit 41.0 41.0-53.0 % Mean Corpuscular Volume 84.0 80.0-100.0 fL Mean Corpuscular Hemoglobin 29.2 28.0-32.0 pg Mean Corpuscular Hemoglobin Concent 34.8 32.0-36.0 g/dL Red Cell Distribution Width 13.2 11.8-14.3 % Platelet Count 187 140-450 10^3/uL Mean Platelet Volume 9.5 6.9-10.8 fL Neutrophils (%) (Auto) 88.4 H 37.0-80.0 % Lymphocytes (%) (Auto) 4.8 L 10.0-50.0 % Monocytes (%) (Auto) 6.7 0.0-12.0 % Eosinophils (%) (Auto) 0.0 0.0-7.0 % Basophils (%) (Auto) 0.1 0.0-2.0 % Neutrophils # (Auto) 15.2 H 1.6-8.6 10 ^3/uL Lymphocytes # (Auto) 0.8 0.4-5.4 10 ^3/uL Monocytes # (Auto) 1.2 0-1.3 10 ^3/uL Eosinophils # (Auto) 0 0-0.8 10 ^3/uL Basophils # (Auto) 0 0-0.2 10 ^3/uL Nucleated Red Blood Cells 0.0 % Amylase Level 173 H 30-118 U/L Lipase 74 H 12-53 U/L Triglycerides Level 55 < 150 mg/dL Test 02/09/25 11:20 Range/Units Urine Color Dark-yellow Yellow Urine Clarity Turbid H Clear Urine pH 5.5 5.0-9.0 Urine Specific [place] 1.017 1.001-1.035 Urine Protein 1+ H Negative Urine Ketones Negative Negative Urine Blood Negative Negative /uL Urine Nitrite Negative Negative Urine Bilirubin 2+ Negative Urine Urobilinogen Normal Negative mg/dL Urine Leukocyte Esterase Negative Negative /uL Urine RBC <1 0 - 3 /hpf Urine Microscopic WBC 2 0-3 /HPF Urine Squamous Epithelial Cells Few <5 /hpf Urine Bacteria Few H None Seen /hpf Urine Mucus Few None Seen Urine Glucose Normal Normal mg/dL impression acute pancreatitis improving Recs: follow labs surgery follow up for choly clear liquid diet pain control VISHAL DUNN MD Feb 13, 2025 19:48
[2025-02-14 01:00] VITALS: BP 118/83; PULSE 81; RESP 18; TEMP 98.4; O2SAT 97
[2025-02-14 05:00] VITALS: BP 112/80; PULSE 90; RESP 19; TEMP 98.4; O2SAT 96
[2025-02-14 06:58] LABS: Albumin 3.5 g/dL (3.2-4.8); Anion Gap 8 (5-15); BUN/Creatinine Ratio 15.9 (10.0-20.0); Bilirubin, Total 0.7 mg/dL (0.2-1.0); Blood Urea Nitrogen 10 mg/dL (9-23); Carbon Dioxide 25 mmol/L (20-31); Chloride 104 mmol/L (98-107); Magnesium 2.0 mg/dL (1.6-2.6); Sodium 137 mmol/L (136-145); Total Protein 5.9 g/dL (5.7-8.2)
[2025-02-14 07:05] LABS: Alanine Aminotransferase 98 U/L (7-40); Alkaline Phosphatase 116 U/L (46-116); Calcium 8.5 mg/dL (8.7-10.4); Glucose 130 mg/dL (74-106); Potassium 2.9 mmol/L (3.5-5.1)
[2025-02-14 08:00] VITALS: PULSE 87; RESP 16; O2SAT 99
[2025-02-14 08:53] VITALS: BP 122/82; PULSE 87; RESP 16; TEMP 97.9; O2SAT 99
[2025-02-14] MEDS: POTASSIUM CHL 20MEQ/100ML 100 ML IV SCH (10:31)
[2025-02-14 13:00] VITALS: BP 120/89; PULSE 79; RESP 16; TEMP 98.2; O2SAT 98
--- NOTE | 2025-02-14 13:01 | DVHPN2 ---
Reviewed: Care Plan, H&P, Labs Changes from previous H/P or p: No Changes General: Per HPI Eyes: No Pain, No Vision change, No Conjunctivae inflammation, No Eyelid inflammation, No Other, No Redness ENT: No Ear pain, No Ear discharge, No Nose pain, No Nose discharge, No Nose congestion, No Mouth pain, No Mouth swelling, No Throat pain, No Throat swelling, No Other Cardiovascular: No Chest Pain, No Palpitations, No Orthopnea, No Paroxysmal Noc. Dyspnea, No Edema, No Lt Headedness, No Other Respiratory: No Cough, No Dry, No Shortness of breath, No SOB with excertion, No Wheezing, No Hemoptysis, No Pleuritic Pain, No Sputum, No Other Gastrointestinal: Nausea, Abdominal Pain Genitourinary: No Dysuria, No Frequency, No Incontinence, No Hematuria, No Retention, No Other Musculoskeletal: No other, No neck pain, No shoulder pain, No arm pain, No back pain, No hand pain, No leg pain, No foot pain Skin: No Rash, No Lesions, No Jaundice, No Bruising, No Other Objective Vitals Vital Signs Date Time Temp Pulse Resp B/P (MAP) Pulse Ox O2 Delivery O2 Flow Rate FiO2 02/14/25 08:53 97.9 87 16 122/82 (95) 99 97.9 02/13/25 20:00 Room Air* 0 21 Intake/Output Intake and Output 02/14/25 07:00 Intake Total 750 ml Output Total 1700 ml Balance -950 ml Intake Oral 500 ml IV Total 250 ml Output Urine Total 1700 ml # Voids 3 Medications Current Medications Medications Dose Ordered Sig/Gisella Route Start Time Stop Time Status Last Admin Dose Admin Acetaminophen/ Hydrocodone Bitart 1 tab Q4HP PRN PO 02/09/25 16:00 02/10/25 00:47 1 TAB Ondansetron HCl 4 mg Q4HP PRN IV 02/09/25 16:00 02/09/25 17:46 4 MG Docusate Sodium 100 mg BIDPRN PRN PO 02/09/25 16:00 Acetaminophen 650 mg Q6HP PRN PO 02/09/25 16:00 Ceftriaxone Sodium 50 ml @ 100 mls/hr DAILY@09 IV 02/10/25 09:00 02/14/25 08:01 100 MLS/HR Metronidazole 100 ml @ 100 mls/hr Q8HR IV 02/09/25 22:00 02/14/25 05:12 100 MLS/HR Morphine Sulfate 2 mg Q3HPRN PRN IV 02/10/25 12:45 02/12/25 14:20 2 MG Sodium Chloride 1,000 ml @ 150 mls/hr Q6H40M IV 02/10/25 16:00 02/14/25 00:00 150 MLS/HR Amino Acids 0 ml @ 0 mls/hr PER PHARMACY IV 02/11/25 13:45 Diagnostic Test (Pha) 1 strip Q6HR 02/11/25 18:00 02/14/25 11:20 1 STRIP Insulin Human Regular FOLLOW SLIDING SCALE Q6HR SC 02/11/25 18:00 02/14/25 11:47 2 UNITS Dextrose 50 ml UD IV 02/11/25 14:00 Amino Acids/ Electrolytes/ Dextrose 1,000 ml @ 41 mls/hr DAILY@2200 IV 02/11/25 22:00 02/13/25 22:42 41 MLS/HR Potassium Chloride 100 ml @ 50 mls/hr Q2H IV 02/14/25 09:30 02/14/25 17:29 02/14/25 11:30 50 MLS/HR Laboratory Results Laboratory Tests 02/12/25 05:41 02/14/25 05:48 Chemistry Test 02/14/25 05:48 Albumin 3.5 g/dL (3.2-4.8) Calcium Level 8.5 mg/dL (8.7-10.4) L Magnesium Level 2.0 mg/dL (1.6-2.6) Phosphorus Level 2.7 mg/dL (2.4-5.1) Total Protein 5.9 g/dL (5.7-8.2) LFT Test 02/14/25 05:48 Alanine Aminotransferase (ALT) 98 U/L (7-40) H Alkaline Phosphatase 116 U/L (46-116) Aspartate Amino Transferase (AST) 28 U/L (13-40) Total Bilirubin 0.7 mg/dL (0.2-1.0) Urinalysis Test 02/09/25 11:20 Urine Color Dark-yellow (Yellow) Urine Clarity Turbid (Clear) H Urine pH 5.5 (5.0-9.0) Urine Specific [place] 1.017 (1.001-1.035) Urine Protein 1+ (Negative) H Urine Ketones Negative (Negative) Urine Blood Negative /uL (Negative) Urine Nitrite Negative (Negative) Urine Bilirubin 2+ (Negative) Urine Urobilinogen Normal mg/dL (Negative) Urine Leukocyte Esterase Negative /uL (Negative) Urine RBC <1 /hpf (0 - 3) Urine Microscopic WBC 2 /HPF (0-3) Urine Squamous Epithelial Cells Few /hpf (<5) Urine Bacteria Few /hpf (None Seen) H Urine Mucus Few (None Seen) Urine Glucose Normal mg/dL (Normal) Assessment/Plan Assessment/Plan 49-YEAR-OLD MALE WITH A NO SIGNIFICANT PAST MEDICAL HISTORY EXCEPT HEAVY ALCOHOL USE PRESENTED TO THE HOSPITAL WITH THE ABDOMINAL PAIN FOUND TO HAVE 1. ACUTE PANCREATITIS LIKELY SECONDARY TO HEAVY ALCOHOL DISEASE 2. CHRONIC ALCOHOLISM 3. LEUKOCYTOSIS 4. TRANSAMINITIS 5. MORBID OBESITY CLASSI advance diet as tolerated Plan discussed with: Patient Date of Service: Feb 12, 2025 Billing Provider: TYRONE DOE DO Common Visit Codes: [id number] INP/OBS CARE(HIGH) TYRONE DOE DO Feb 14, 2025 13:01
--- NOTE | 2025-02-14 13:04 | DVHDS2 ---
Discharge Summary Date of Admission Feb 09, 2025 at 15:57 Date of Discharge: Feb 14, 2025 Labs/Diagnostic Data: Laboratory Results Test 02/14/25 11:38 02/14/25 05:48 02/12/25 05:41 02/11/25 12:51 POC Glucose 135 mg/dl (70-106) Sodium Level 137 mmol/L (136-145) Potassium Level 2.9 mmol/L (3.5-5.1) Chloride Level 104 mmol/L (98-107) Carbon Dioxide Level 25 mmol/L (20-31) Anion Gap 8 (5-15) Blood Urea Nitrogen 10 mg/dL (9-23) Creatinine 0.63 mg/dL (0.700-1.30) Glomerular Filtration Rate Calc 117 mL/min (>90) BUN/Creatinine Ratio 15.9 (10.0-20.0) Serum Glucose 130 mg/dL (74-106) Calcium Level 8.5 mg/dL (8.7-10.4) Phosphorus Level 2.7 mg/dL (2.4-5.1) Magnesium Level 2.0 mg/dL (1.6-2.6) Total Bilirubin 0.7 mg/dL (0.2-1.0) Aspartate Amino Transferase (AST) 28 U/L (13-40) Alanine Aminotransferase (ALT) 98 U/L (7-40) Alkaline Phosphatase 116 U/L (46-116) Total Protein 5.9 g/dL (5.7-8.2) Albumin 3.5 g/dL (3.2-4.8) White Blood Count 17.2 10^3/uL (4.4-10.8) Red Blood Count 4.88 10^6/uL (4.5-5.90) Hemoglobin 14.2 g/dL (13.5-17.5) Hematocrit 41.0 % (41.0-53.0) Mean Corpuscular Volume 84.0 fL (80.0-100.0) Mean Corpuscular Hemoglobin 29.2 pg (28.0-32.0) Mean Corpuscular Hemoglobin Concent 34.8 g/dL (32.0-36.0) Red Cell Distribution Width 13.2 % (11.8-14.3) Platelet Count 187 10^3/uL (140-450) Mean Platelet Volume 9.5 fL (6.9-10.8) Neutrophils (%) (Auto) 88.4 % (37.0-80.0) Lymphocytes (%) (Auto) 4.8 % (10.0-50.0) Monocytes (%) (Auto) 6.7 % (0.0-12.0) Eosinophils (%) (Auto) 0.0 % (0.0-7.0) Basophils (%) (Auto) 0.1 % (0.0-2.0) Neutrophils # (Auto) 15.2 10 ^3/uL (1.6-8.6) Lymphocytes # (Auto) 0.8 10 ^3/uL (0.4-5.4) Monocytes # (Auto) 1.2 10 ^3/uL (0-1.3) Eosinophils # (Auto) 0 10 ^3/uL (0-0.8) Basophils # (Auto) 0 10 ^3/uL (0-0.2) Nucleated Red Blood Cells 0.0 % Amylase Level 173 U/L (30-118) Lipase 74 U/L (12-53) Triglycerides Level 55 mg/dL (< 150) Test 02/09/25 11:20 Urine Color Dark-yellow (Yellow) Urine Clarity Turbid (Clear) Urine pH 5.5 (5.0-9.0) Urine Specific [place] 1.017 (1.001-1.035) Urine Protein 1+ (Negative) Urine Ketones Negative (Negative) Urine Blood Negative /uL (Negative) Urine Nitrite Negative (Negative) Urine Bilirubin 2+ (Negative) Urine Urobilinogen Normal mg/dL (Negative) Urine Leukocyte Esterase Negative /uL (Negative) Urine RBC <1 /hpf (0 - 3) Urine Microscopic WBC 2 /HPF (0-3) Urine Squamous Epithelial Cells Few /hpf (<5) Urine Bacteria Few /hpf (None Seen) Urine Mucus Few (None Seen) Urine Glucose Normal mg/dL (Normal) Other Laboratory Tests 02/14/25 05:48 02/12/25 05:41 Brief Hx & Hospital Course: 49-YEAR-OLD MALE WITH A NO SIGNIFICANT PAST MEDICAL HISTORY EXCEPT HEAVY ALCOHOL USE PRESENTED TO THE HOSPITAL WITH THE ABDOMINAL PAIN FOUND TO HAVE 1. ACUTE PANCREATITIS LIKELY SECONDARY TO HEAVY ALCOHOL DISEASE 2. CHRONIC ALCOHOLISM 3. LEUKOCYTOSIS 4. TRANSAMINITIS 5. MORBID OBESITY CLASSI improved discharged to home Condition at Discharge: Fair Final Diagnosis/Problems List pancreatitis Discharge Disposition: Home Discharge Instruct/Medications Diet: Cardiac 2g Na,low cholest Activity: No Restrictions, As Tolerated No Active Prescriptions or Reported Meds Discharge Statement: "Patient was advised to return to the ER or call 911 if any headaches, dizziness, shortness of breath, chest pain, abdominal pain, bleeding, fevers, or worsening of medical condition. Patient was counseled about treatment plan, medications, possible side effects, patientverbalized understanding. All questions were answered to the best of my ability. This discharge took greater then 30 minutes in planning, reviewing documentation, counseling the patient, and discussing with other team members." ASSESSMENT ASSESSMENT Assessment pancreatitis Date of Service: Feb 14, 2025 Billing Provider: TYRONE DOE DO Common Visit Codes: 07569-SJQ/OBS DISCH DAY >30min TYRONE DOE DO Feb 14, 2025 13:04
[2025-02-14] MEDS ORDERED: POTASSIUM EFFERVESENT TAB 25 MEQ PO ONE (15:00)
[2025-02-14] MEDS: POTASSIUM EFFERVESENT TAB 25 MEQ PO ONE (16:10)
[2025-02-14 16:59] VITALS: BP 122/86; PULSE 88; RESP 16; TEMP 97.7; O2SAT 98
--- NOTE | 2025-02-14 19:48 | DVHPN2 ---
Progress Note - Dictate Date Seen: Feb 14, 2025 (Late entryPatient seen at 3:30 p.m.) Medical Necessity Reason Pt with a Central, PICC or Fol: No Subjective No new complaints Patient is feeling better Lipase levels are trending down Patient is tolerating diet Liver enzymes are also trending down vital signs Vital Sign Date Time Temp Pulse Resp B/P (MAP) Pulse Ox O2 Delivery O2 Flow Rate FiO2 02/14/25 16:59 97.7 88 16 122/86 (98) 98 97.7 02/14/25 08:00 Room Air* 0 21 Total Intake and Output 02/13/25 02/13/25 02/14/25 15:00 23:00 07:00 Intake Total 50 ml 600 ml 100 ml Output Total 1700 ml Balance 50 ml 600 ml -1600 ml objective a/ox4 rrr soft NT ND no c c e laboratory and microbiology Laboratory Tests 02/14/25 05:48 02/12/25 05:41 Test 02/14/25 05:48 Range/Units Serum Glucose 130 H 74-106 mg/dL Problems(with codes): (1) Acute pancreatitis (2) Gallstones Prognosis Plan Patient is clinically improving and tolerating diet Likely etiology of pancreatitis related to alcohol consumption He does have cholelithiasis without evidence of CBD dilation or cholecystitis Patient advised to discontinue drinking alcohol He will follow up with GI Services as an outpatient to discuss elective screening colonoscopy and to monitor his cholelithiasis Dietary Evaluation Review Comments: 1. continue with clinimix per order 2. F/u with lab vaues, 3. Advance to low fat PO diet when medically feaisble Expected Outcomes/Goals: Avoid alcohol, gradual weight loss, recovered Gi function Plan discussed with: Patient AYLA KWAN MD Feb 14, 2025 19:48
== END 2025-02-14 18:00 | disposition home or self-care (01) | DRG 440 ==
LOC: ER 10:18 → OVERFLOW 15:57 → CENTRAL 02-10 17:02
PROVIDERS: ADMIT Internal Medicine; ATTEND Internal Medicine
DX: K85.20 Alcohol induced acute pancreatitis without necrosis or infection (principal); E66.01 Morbid (severe) obesity due to excess calories; F10.20 Alcohol dependence, uncomplicated; K80.20 Calculus of gallbladder without cholecystitis without obstruction; E80.6 Other disorders of bilirubin metabolism; K57.30 Diverticulosis of large intestine without perforation or abscess without bleeding; Z68.33 Body mass index [BMI] 33.0-33.9, adult; R74.01 Elevation of levels of liver transaminase levels; Z83.3 Family history of diabetes mellitus; Z82.49 Family history of ischemic heart disease and other diseases of the circulatory system
CPT/HCPCS: 36415; 74176; 76705; 80053; 81001; 82040; 82150; 82962; 83690; 83735; 84100; 84478; 85025; 96374; 96375; G0378; J1815; J2405; J3480; J3490; J7060